=== PATIENT | male | born 1980 | race Caucasian/White ===

== ENCOUNTER → 2020-11-05 02:41 | Outpatient (CLI) | payer BC, SELFPAY ==
[2020-11-06 15:30] LABS: SARS-CoV-2 RNA PCR Negative
== END ==
PROVIDERS: PCP Family Medicine; Visit Provider Family Medicine
DX: Z20.822 Contact with and (suspected) exposure to COVID-19 (principal)
CPT/HCPCS: C9803; U0003; U0005

== ENCOUNTER 2023-03-23 18:34 | Emergency (ER) | payer BC, SELFPAY ==
--- NOTE | 2023-03-23 18:35 | ED.URI ---
HPI - URI/Sore Throat General Chief Complaint: Upper Respiratory Infection Stated Complaint: sinus infection Time Seen by Provider: 03/23/23 18:46 Source: patient, RN notes reviewed and old records reviewed Mode of arrival: ambulatory Limitations: no limitations History of Present Illness HPI Narrative: 42-year-old male presents to the [facility] with complaints of sinus congestion that started 3 days. Reports tearing or clear discharge from the right eye, denies any other symptoms. Has not taken anything for his symptoms Patient states ?they gave me antibiotics for his sinus congestion Onset (ago): day(s) (3) Related Data Allergies Allergy/AdvReac Type Severity Reaction Status Date / Time No Known Allergies Allergy Verified 03/23/23 18:53 Review of Systems Review of Systems: All systems reviewed & are unremarkable except as noted in HPI and below Constitutional: Constitutional: Reports no additional constitutional complaints Eyes: Eyes: Reports no additional eye complaints ENT: Reports as per HPI Cardiovascular: Cardiovascular: Reports no additional cardiovascular complaints, Denies chest pain and Denies dyspnea Respiratory: Respiratory: Reports no additional respiratory complaints, Denies chest congestion, Denies cough and Denies dyspnea Gastrointestinal: Gastrointestinal: Reports no additional gastrointestinal complaints, Denies abdominal pain, Denies nausea and Denies vomiting Musculoskeletal: Musculoskeletal: Reports no additional musculoskeletal complaints Integumentary/Breasts: Skin/Breast: Reports system reviewed and no additional complaints, except as docu Neurologic: Reports system reviewed and no additional complaints, except as documented Psychiatric: Psychiatric: Reports no additional psychiatric complaints Allergic/Immunologic: Allergic/Immunologic: Reports no additional allergic/immunologic complaints PMFSH Comments At the time of my signature, I reviewed and agree with the nursing past medical, surgical, social, and family history. There is no relevant family history pertinent to the patient complaint. Exam Const: General: cooperative, healthy appearing, comfortable, no acute distress, well developed, alert and well nourished Nutritional Appearance: well nourished Orientation/consciousness: patient oriented x3 Limitations: no limitations HENMT: Head: normal to inspection Ears: hearing grossly normal bilaterally, external ears normal, EAC's normal, mastoids normal and TM abnormal wth effusion serous bilateral; not bulging and not erythematous Face/Nose/Sinus: Normal external nose present, Normal nares present, Normal nasal mucous membranes and turbinates present, normal facial exam and face symmetric Face and sinus: normal facial exam, sinuses nontender and face symmetric Mouth: Yes Normal oral and palatal mucosa present, Yes lip normal and Yes moist mucous membranes Throat: posterior oropharynx normal and uvula midline Eyes: General: appearance normal, both eyes and all related structures Alignment and Position: alignment normal Periorbital: periorbital findings normal Pupils: Equal, round and reactive pupils present EOM: EOMs intact bilaterally Neck: Neck: normal visual inspection, full ROM, no lymphadenopathy and no meningeal signs Chest: Chest palpation & inspection: normal inspection of the chest Resp: Effort & Inspection: normal respiratory effort and able to speak in complete sentences Auscultation: clear to auscultation bilaterally, no crackles, no rales, no rhonchi and no wheezes Cardio: Rate: regular rate Rhythm: regular rhythm Back/Spine/Pelvis: Cervical Spine: cervical ROM normal Skin: General skin exam: normal color and no rashes or lesions noted Lesions: no lesions Rashes: no rashes Wounds: no wounds Neuro: General: patient oriented x3, gait normal, tone normal, moves all extremities and no meningeal signs Cranial nerves: Yes Equal, round and reactive pupils present C
[2023-03-23 18:49] VITALS: BP 139/91; PULSE 74; RESP 16; TEMP 36.4; O2SAT 100
== END 2023-03-23 18:58 | disposition home or self-care (01) ==
PROVIDERS: Emergency Provider Nurse Practitioner
DX: J32.9 Chronic sinusitis, unspecified (principal); H65.03 Acute serous otitis media, bilateral
CPT/HCPCS: 99213; G0463

== ENCOUNTER 2025-02-27 13:17 | Observation (INO) | payer BC, SELFPAY ==
[2025-02-27] VITALS (7 sets, daily range): BP systolic 128–151; BP diastolic 84–99; PULSE 90–109; RESP 16–18; TEMP 36.4–37.2; O2SAT 96–100
--- NOTE | ~2025-02-27 | CT_ITS ---
EXAMINATION: CT brain wo con DATE: 02/27/2025 15:51 INDICATION: Metabolic encephalopathy TECHNIQUE: Computed tomography (CT) of the head was performed without intravenous contrast. The dose-length product was 605.33 mGy-cm. Automated exposure control and iterative reconstruction technique were employed. COMPARISON: None FINDINGS: There is residual contrast likely from a CT abdomen performed the same day. No abnormal contrast enhancement. Normal brain parenchymal volume. No ventriculomegaly or midline shift. Normal munoz-white differentiation. Basilar cisterns are patent. Paranasal sinuses and mastoids are pneumatized. No depressed skull fractures. No acute infarction, hemorrhage, mass or mass effect. IMPRESSION: 1. No acute intracranial abnormality. Reviewed, dictated and finalized at location O. DENTIAL TEAM LEADER
--- NOTE | ~2025-02-27 | CT_ITS ---
EXAMINATION: CT abdomen pelvis w con DATE: 02/27/2025 14:52 INDICATION: Transaminitis. TECHNIQUE: Computed tomography (CT) of the abdomen and pelvis was performed with intravenous contrast. The dose-length product was 540.48 mGy-cm. Automated exposure control and iterative reconstruction technique were employed. COMPARISON: None. FINDINGS: Lung bases unremarkable. Heart size normal. No significant pleural or pericardial effusion. No significant vascular abnormality. No lymphadenopathy. No free air or free fluid. Nonobstructive bowel gas pattern. Fatty infiltration of the liver. Gallbladder is moderately distended. The spleen, pancreas, adrenal glands and kidneys are unremarkable. Normal appendix. IMPRESSION: 1. Fatty infiltration of the liver. Reviewed, dictated and finalized at location O. ENDER MAKER
--- NOTE | ~2025-02-27 | MR_ITS ---
EXAMINATION: MR MRCP wo/w con/w 3D wo ind DATE: 02/28/2025 11:20 INDICATION: Transaminitis TECHNIQUE: Magnetic resonance imaging (MRI) of the abdomen was performed without and with 20 mL Multihance intravenous contrast. Sequences included coronal T2- weighted SS-FSE, coronal T2-weighted FS SS-FSE, coronal T2-weighted FS FIESTA, axial T2-weighted FS FIESTA, axial T2-weighted FIESTA, sagittal T2-weighted SS- FSE, axial T1-weighted dual-echo FSPGR, axial T2-weighted SS-FSE, axial T1- weighted LAVA, axial T2-weighted STIR FSE. Thick-slab T2-weighted FRFSE-XL images were obtained for magnetic resonance cholangiopancreatography (MRCP). Rotating maximum intensity projection 3-D reconstructions of the volumetric data were created by the technologist. Postcontrast sequences included a time course of axial T1-weighted LAVA. COMPARISON: CT dated 02/27/2025 FINDINGS: ABDOMEN MRI: Heart size is normal. No pericardial or pleural effusion. Marked diffuse hepatic steatosis with nearly 2/3 signal loss on opposed phase imaging. Gallbladder, spleen, pancreas, bilateral adrenal glands and kidneys are normal. Visualized portions of bowels are unremarkable. No pathologically enlarged abdominal or upper pelvic lymphadenopathy. Mild lumbar and lower thoracic spondylosis. ABDOMEN MRCP: The common bile duct measures to have 3 mm maximal diameter which is normal. No intrahepatic biliary ductal dilation. The main pancreatic duct is also normal measuring up to 2.5 cm in maximal diameter at the proximal body of the pancreas. IMPRESSION: 1. Prominent diffuse hepatic steatosis. Otherwise unremarkable MRI/MRCP with normal intra and extrahepatic bile ducts and without cholelithiasis/choledocholithiasis. Reviewed, dictated and finalized at location A. ENT DEVELOPER IMPRESSION: 1. Prominent diffuse hepatic steatosis. Otherwise unremarkable MRI/MRCP with no rmal intra and extrahepatic bile ducts and without cholelithiasis/choledocholit hiasis.
--- NOTE | ~2025-02-27 | US_ITS ---
US abdomen limited INDICATION: Transaminitis. PROCEDURE: Realtime right upper abdominal ultrasound. COMPARISON: Ultrasound dated 10/24/2010 FINDINGS: The pancreas is normal without focal mass or pancreatic ductal dilation. Liver echotexture is diffusely echogenic, consistent with fatty infiltration. No focal hepatic mass. There is normal directional flow in the portal vein. The gallbladder is normal without stones, gallbladder wall thickening or pericholecystic fluid. Common bile duct measures 5 mm. IMPRESSION: 1: Fatty infiltration of the liver. Reviewed, dictated and finalized at location O. ENFORCEMENT OFFICER
--- OUTSIDE RECORDS SUMMARY | 2025-02-27 13:20 | XMS_ITS | Patient Health Record ---
Author Organization [facility] Address [address] [facility] [address] [place] [address] Care Team Providers Care Fur Glosser Name Role Phone Amor Jimenez Unavailable [phone] Reason For Referral No Information Social History Social History Additional Details Category Social Info Options Details Migrated Social History Migrated Social History Alcohol Intake: Occasional 03/16/2020,Tobacco Years: Current every day smoker 03/16/2020 Plan Of Treatment No Information Insurance Providers Payer Name Payer Address Payer Phone Subscriber Number Group Number Insured Name Patient Relationship to Insured Coverage Start Date Coverage End Date [facility] [address] [place] [address] [id number] NERI AGUILAR Self - patient is the insured
--- OUTSIDE RECORDS SUMMARY | 2025-02-27 13:20 | XMS_ITS | Clinical Summary ---
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 Gender Identity Not on file Sexual Orientation Not on file Plan of Treatment Health Maintenance Due Date Last Done Comments Hepatitis C Virus (HCV) Screening 1981 TdaP Immunization 1981 Hepatitis B Immunization (1 of 3 - 19+ 3-dose series) 2000 Human Papillomavirus (HPV) Immunization (1 - 3-dose SCDM series) 2008 Influenza Immunization (#1) 2024 SARS-COV-2 Immunization ( season) 2024 Respiratory Syncytial Virus (RSV) Immunization (Adult) (1 - 1-dose 75+ series) 2056 Meningococcal Immunization (ACWY) Aged Out No longer eligible based on patient's age to complete this topic Pneumococcal Immunization Combined Aged Out No longer eligible based on patient's age to complete this topic Rotavirus Immunization Aged Out No lo nger eligible based on patient's age to complete this topic
--- OUTSIDE RECORDS SUMMARY | 2025-02-27 13:56 | XMS_ITS | Clinical Summary ---
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
--- NOTE | 2025-02-27 14:07 | ECG_ITS ---
Test Date: 2025-02-27 14:26:33 Measurements Intervals [place] Rate: 98 P: 57 GA: 104 QRS: -4 QRSD: 96 T: 47 QT: 338 QTc: 433 Interpretive Statements SINUS RHYTHM WITH SHORT GA INTERVAL MINIMAL Q WAVES- HIGH LATERAL LEADS BASELINE ARTIFACT- V4 BORDERLINE ECG No previous ECG available for comparison Electronically Signed On 02-27-2025 14:38:27 SOFTWARE DEVELOPMENT INTERN by Rodo Huynh D.O.
--- NOTE | 2025-02-27 14:21 | ED.GENADULT ---
HPI - General Adult General Chief complaint: Unspecified Stated complaint: hole in kidney Time Seen by Provider: 02/27/25 13:50 History of Present Illness HPI narrative: 44-year-old male presents to the emergency department for evaluation for suspected ?hole in his kidney. Patient suspects he has a hole in his kidney because if he pushes on his left lower quadrant he is able to urinate without issues. Patient does have a history of alcohol consumption but states he last drank approximately 2 weeks ago. Patient is tremulous at time of evaluation. Patient states this is not uncommon for him. Patient does have some scleral icterus which he states is also not uncommon for him. Patient states he has no prior history of alcohol withdrawal. Patient does reports that he has had difficulty sleeping and decreased p.o. intake. Related Data Allergies Allergy/AdvReac Type Severity Reaction Status Date / Time No Known Allergies Allergy Verified 02/27/25 18:29 Review of Systems Review of Systems: All systems reviewed & are unremarkable except as noted in HPI and below Exam Narrative: APPEARANCE: Ill-appearing HEAD: normocephalic, atraumatic. EYES: Scleral icterus NOSE: Normal no drainage EARS:TMS clear with good light reflex. THROAT: Pharynx clear, no exudate. NECK: Supple. No adenopathy, no masses. RESPIRATORY: Airway patent, respirations nonlabored. Clear to auscultation bilaterally, no rales, rhonchi, wheezing. CARDIOVASCULAR: Regular rate and rhythm without murmurs rubs or gallops. ABDOMINAL: Mild tenderness to left lower quadrant MUSCULOSKELETAL: Moves all extremities. Strength/ROM intact, No edema, No calf tenderness. NEURO: Alert. Cranial nerves II through XII intact. Good gait. Good coordination SKIN: Warm, dry. Normal Color Course Vital Signs Vital signs: Vital Signs Temperature 98 F 02/27/25 13:21 Pulse Rate 109 H 02/27/25 13:21 Respiratory Rate 16 02/27/25 13:21 Blood Pressure 151/97 H 02/27/25 13:21 Pulse Oximetry 99 02/27/25 13:21 Oxygen Delivery Room Air 02/27/25 13:21 Temperature 97.6 F 02/27/25 17:25 Pulse Rate 94 02/27/25 17:09 Respiratory Rate 18 02/27/25 17:09 Blood Pressure 131/99 H 02/27/25 17:09 Pulse Oximetry 96 02/27/25 17:09 Oxygen Delivery Room Air 02/27/25 13:21 [facility] Narrative Medical decision making narrative: 44-year-old male presents emergency department for evaluation for potential hole in his kidney. Patient feels that he has a hole in his kidney that if he pushes on his left lower quadrant at plug the hole. Patient is currently afebrile with a leukocytosis and a stable hemoglobin of 14.9. INR 1.1. Patient does have a significant elevated bilirubin of 8.4 AST of 517 ALT of 262 alk-phos of 222. And a lipase of 7324. Patient's ammonia level is not elevated. Patient's alcohol as negative. CT scan does show fatty infiltration of the liver and ultrasound shows this as well. I am concerned patient does have some metabolic encephalopathy. B12 and folate levels are pending. Patient was treated with IV thiamine. GI was consulted. MRCP was ordered. Patient was treated with IV fluids and patient was made NPO related to the elevated lipase and concern for pancreatitis. Patient was after the results of the workup and reason for admission. All questions concerns were addressed patient was comfortable with plan for admission. Differential Diagnosis Differential Diagnosis: Ureteral calculi, inguinal hernia, metabolic encephalopathy, hyperammonemia, biliary colic, pancreatic tumor, pancreatic obstruction, biliary obstruction Lab Data [facility] Lab Attestation statement: I personally reviewed the patient's lab results. 02/27/25 14:20 02/27/25 14:20 Labs: Lab Results 02/27/25 02/27/25 02/27/25 Range/Units 14:19 14:20 14:21 WBC 7.2 (4.5-10.0) K/mm3 RBC 4.35 L (4.6-6.20) M/mm3 Hgb 14.9 (14.0-18.0) g/dL Hct 41.0 L (42.0-52.0) % MCV 94.3 (80-100) fl MCH 34.3 H (26-34) pg MCHC 36.3 H (32-36) g/dl RDW 14.7 H (11.5-14.5) % Plt Count 216 (150-375) k/mm3 MPV 10.2 (7.4-10.4) fl Immature Gran % (Auto) 1.8 H (0-0.5) % Neut % (Auto) 71.9 (45.5-73.1) % Lymph % (Auto) 9.5 L (18.3-44.2) % [place] % (Auto) 14.8 H (2.6-8.5) % Eos % (Auto) 1.0 (0-4.4) % Baso % (Auto) 1.0 (0.2-1.2) % Lymph # (Auto) 0.69 L (0.9-3.2) K/mm3 [place] # (Auto) 1.1 H (0.1-0.6) K/mm3 Eos # (Auto) 0.1 (0-0.3) K/mm3 Baso # (Auto) 0.1 (0.0-0.1) K/mm3 Abs Immat Gran (auto) 0.13 H (0.00-0.031) K/mm3 Absolute Neuts (auto) 5.2 (1.3-6.7) K/mm3 Absolute Nucleated RBC 0.000 (0.0-0.012) K/mm3 Nucleated RBC % 0.0 (0.0-0.2) % PT 14.4 (11.1-14.7) Seconds INR 1.1 APTT 30.1 (22.3-36.8) Seconds Sodium 129 L (137-145) mmol/L Potassium 3.6 (3.4-5.0) mmol/L Chloride 88 L (98-107) mmol/L Carbon Dioxide 26 (22-30) mmol/L Anion Gap 15 H (4-12) mmol/L BUN 10 (9-20) mg/dL Creatinine 0.81 (0.7-1.3) mg/dL Estim Creat Clear Calc 120 ml/min Estimated GFR > 60 (59 - ) Glucose 109 (65-110) mg/dL Lactic Acid 1.2 (0.7-2.0) mmol/L Calcium 10.1 (8.4-10.2) mg/dL Total Bilirubin 8.4 H (0.2-1.3) mg/dL AST 517 H (17-59) U/L ALT 262 H (6-50) U/L Alkaline Phosphatase 222 H (38-126) U/L Ammonia (9-30) umol/L Total Protein 9.3 H (6.3-8.2) g/dL Albumin 4.8 (3.5-5.1) g/dL Lipase 7324 H (23-300) U/L Vitamin B12 937.0 H (239-931) pg/mL Folate 6.2 (2.76->20) ng/mL Urine Color Dark yellow (Yellow) Urine Appearance Clear (Clear) Urine pH 8.0 (5.0-9.0) Ur Specific [place] 1.012 (1.001-1.035) Urine Protein 1+ H (Negative) mg/dL Urine Glucose (UA) Negative (Negative) mg/dL Urine Ketones Trace H (Negative) mg/dL Ur Blood (Man) Negative (Negative) Urine Nitrate Negative (Negative) Urine Bilirubin 3+ H (Negative) Urine Urobilinogen 2.0 H (<2.0) mg/dL Leukocyte Esterase Rfl Trace H (Negative) MERI/UL Urine RBC 0-2 (0-2) /hpf Urine WBC 0-5 (0-3) /hpf Ur Squamous Epith Cells None seen (Few) /hpf Urine Bacteria None seen /hpf Urine Casts 3-5 Ethyl Alcohol < 10 (<10) mg/dL Hepatitis A IgM Ab Negative (Negative) Hep Bs Antigen Negative (Negative) Hep B Core IgM Ab Negative (Negative) Hepatitis C Ab Screen Negative (Negative) 02/27/25 Range/Units 15:06 WBC (4.5-10.0) K/mm3 RBC (4.6-6.20) M/mm3 Hgb (14.0-18.0) g/dL Hct (42.0-52.0) % MCV (80-100) fl MCH (26-34) pg MCHC (32-36) g/dl RDW (11.5-14.5) % Plt Count (150-375) k/mm3 MPV (7.4-10.4) fl Immature Gran % (Auto) (0-0.5) % Neut % (Auto) (45.5-73.1) % Lymph % (Auto) (18.3-44.2) % [place] % (Auto) (2.6-8.5) % Eos % (Auto) (0-4.4) % Baso % (Auto) (0.2-1.2) % Lymph # (Auto) (0.9-3.2) K/mm3 [place] # (Auto) (0.1-0.6) K/mm3 Eos # (Auto) (0-0.3) K/mm3 Baso # (Auto) (0.0-0.1) K/mm3 Abs Immat Gran (auto) (0.00-0.031) K/mm3 Absolute Neuts (auto) (1.3-6.7) K/mm3 Absolute Nucleated RBC (0.0-0.012) K/mm3 Nucleated RBC % (0.0-0.2) % PT (11.1-14.7) Seconds INR APTT (22.3-36.8) Seconds Sodium (137-145) mmol/L Potassium (3.4-5.0) mmol/L Chloride (98-107) mmol/L Carbon Dioxide (22-30) mmol/L Anion Gap (4-12) mmol/L BUN (9-20) mg/dL Creatinine (0.7-1.3) mg/dL Estim Creat Clear Calc ml/min Estimated GFR (59 - ) Glucose (65-110) mg/dL Lactic Acid (0.7-2.0) mmol/L Calcium (8.4-10.2) mg/dL Total Bilirubin (0.2-1.3) mg/dL AST (17-59) U/L ALT (6-50) U/L Alkaline Phosphatase (38-126) U/L Ammonia 23 (9-30) umol/L Total Protein (6.3-8.2) g/dL Albumin (3.5-5.1) g/dL Lipase (23-300) U/L Vitamin B12 (239-931) pg/mL Folate (2.76->20) ng/mL Urine Color (Yellow) Urine Appearance (Clear) Urine pH (5.0-9.0) Ur Specific [place] (1.001-1.035) Urine Protein (Negative) mg/dL Urine Glucose (UA) (Negative) mg/dL Urine Ketones (Negative) mg/dL Ur Blood (Man) (Negative) Urine Nitrate (Negative) Urine Bilirubin (Negative) Urine Urobilinogen (<2.0) mg/dL Leukocyte Esterase Rfl (Negative) MERI/UL Urine RBC (0-2) /hpf Urine WBC (0-3) /hpf Ur Squamous Epith Cells (Few) /hpf Urine Bacteria /hpf Urine Casts Ethyl Alcohol (<10) mg/dL Hepatitis A IgM Ab (Negative) Hep Bs Antigen (Negative) Hep B Core IgM Ab (Negative) Hepatitis C Ab Screen (Negative) Imaging Data Radiologist's impression: ITS Impressions Abdomen/Pelvis CT 02/27/25 15:08 IMPRESSION: 1. Fatty infiltration of the liver. Abdomen Ultrasound 02/27/25 15:11 IMPRESSION: 1: Fatty infiltration of the liver. Head CT 02/27/25 15:52 IMPRESSION: 1. No acute intracranial abnormality. Discharge Plan Discharge Clinical Impression: Pancreatitis, Transaminitis, Metabolic encephalopathy Patient Disposition: Still a Patient Condition: Serious
[2025-02-27] MEDS: THIAMINE HCL 200 MG/2 ML VIAL 100 MG IV PUSH (14:23)
[2025-02-27 14:29] LABS: Hematocrit 41.0 % (42.0-52.0); Hemoglobin 14.9 g/dL (14.0-18.0); Immature Granulocyte Percent A 1.8 % (0-0.5); Lymphocytes Absolute Auto 0.69 K/mm3 (0.9-3.2); Mean Corpuscular HGB Conc 36.3 g/dl (32-36); Mean Corpuscular Hemoglobin 34.3 pg (26-34); Mean Corpuscular Volume 94.3 fl (80-100); Nucleated Red Blood Cells Absolute Auto 0.000 K/mm3 (0.0-0.012); Nucleated Red Blood Cells Perc 0.0 % (0.0-0.2); Platelet Count Result 216 k/mm3 (150-375); Red Blood Count 4.35 M/mm3 (4.6-6.20); White Blood Count 7.2 K/mm3 (4.5-10.0)
[2025-02-27 14:37] LABS: Add Urine Microscopic? YES; Appearance Urine Clear (Clear); Glucose Urine UA Negative (Negative); Leukocyte Esterase Ur Trace LEU/UL (Negative); Nitrate Urine Negative (Negative); Specific Grav Ur 1.012 (1.001-1.035)
[2025-02-27 14:38] LABS: Alanine Aminotransferase 262 U/L (6-50); Albumin Level 4.8 g/dL (3.5-5.1); Alkaline Phosphatase 222 U/L (38-126); Anion Gap 15 mmol/L (4-12); Aspartate Amino Transferase 517 U/L (17-59); Bilirubin,Total 8.4 mg/dL (0.2-1.3); Blood Urea Nitrogen 10 mg/dL (9-20); Calcium 10.1 mg/dL (8.4-10.2); Carbon Dioxide 26 mmol/L (22-30); Chloride 88 mmol/L (98-107); Estimated CRCL calculation 120 ml/min; Estimated Glomerular Filt Rate > 60; Glucose 109 mg/dL (65-110); Potassium 3.6 mmol/L (3.4-5.0); Sodium 129 mmol/L (137-145); Total Protein 9.3 g/dL (6.3-8.2)
[2025-02-27 14:48] LABS: INR 1.1; Prothrombin Time 14.4 Seconds (11.1-14.7)
[2025-02-27 14:49] LABS: Partial Thromboplastin Time 30.1 Seconds (22.3-36.8)
[2025-02-27 14:57] LABS: Lipase 7324 U/L (23-300)
[2025-02-27 15:24] LABS: Ammonia 23 umol/L (9-30)
[2025-02-27] MEDS: LACTATED RINGERS 1,000 ML 125 ML IV CONT (17:02)
[2025-02-27 17:03] LABS: Hepatitis B Surface Antigen Negative (Negative)
[2025-02-27 17:09] LABS: HAV RESULT Negative (Negative); Hepatitis B Core IgM Result Negative (Negative)
--- NOTE | 2025-02-27 17:26 | WPCEDHO ---
ED Hand Off Checklist All vitals saved:Y IV Site documented:Y All med administrations documented:Y Triage Note Triage Note Patient to ED reporting he has a 02/27/25 14:16 hole in his kidney. Patient reports feeling vibrations in his L kidney and that he needs the hole plugged. Patient denies any puncture wounds or external trauma to affected area. Patient appears jaundiced, but states he does not feel as if he is jaundiced. Patient last alcoholic drink was approx 2 weeks ago. Patient tremulous in triage. Patient alert to self, place, and situation. 1410-No changes from above Allergies No Known Allergies Allergy (Verified 03/23/23 18:53) Active Medications including assessments/comments Lactated Ringer's (Lr - Lactated Ringers Iv) 1,000 mls @ 125 mls/hr IV CONT .Q8H LAVONNE Last Admin: 02/27/25 17:02 Dose: 125 mls/hr Documented By: LOLIS Infusion/Titration Document 02/27/25 17:02 LOLIS (Rec: 02/27/25 17:02 TLB [id number]) Intake IV Site Peripheral Access Right Antecubital Container Volume 1,000 Waste Amount 0 Dosing Infusion Rate 125 Cumulative Dose Not Applicable Increase/Decrease Started Elapsed Time Elapsed Time ( 0m minutes) Administered/Completed Medications Discontinued Medications Thiamine HCl (Thiamine Hcl 200 Mg/2 Ml Vial) 100 mg IV PUSH ONCE ONE Stop: 02/27/25 14:08 Last Admin: 02/27/25 14:23 Dose: 100 mg Documented By: LOLIS Interventions/Assessments General Assessment Start: 02/27/25 13:21 Freq: Status: Active Protocol: Document 02/27/25 14:30 TLB (Rec: 02/27/25 17:11 TLB [id number]) GA Integumentary Assessment Integumentary Yes Assessment WNL Generalized Integumentary Jaundice Symptoms Temperature Warm Skin Color Normal for Patient Moisture Dry Skin Turgor Normal IV / Saline Lock, Insert Start: 02/27/25 13:21 Freq: Status: Active Protocol: Document 02/27/25 14:16 TLB (Rec: 02/27/25 14:16 TLB [id number]) IV Assessment Peripheral Access Right Antecubital IV Catheter Access Initiated IV Insertion Date 02/27/25 IV Insertion Time 14:16 Catheter Gauge 20 IV Insertion 1 Attempts IV Site Assessment WNL IV Care and WNL,Access Locked Maintenance Last Vital Signs Temperature 97.6 F 02/27/25 17:25 Pulse Rate 94 02/27/25 17:09 Respiratory Rate 18 02/27/25 17:09 Pulse Oximetry 96 02/27/25 17:09 Blood Pressure 131/99 H 02/27/25 17:09 Blood Pressure Mean 109 02/27/25 17:09 Blood Pressure Position Sitting 02/27/25 13:21 Oxygen Delivery Room Air 02/27/25 13:21 Weight 97.7 kg 02/27/25 14:16 Last Result - Abnormals Only RBC 4.35 M/mm3 (4.6-6.20) L 02/27/25 14:20 Hct 41.0 % (42.0-52.0) L 02/27/25 14:20 MCH 34.3 pg (26-34) H 02/27/25 14:20 MCHC 36.3 g/dl (32-36) H 02/27/25 14:20 RDW 14.7 % (11.5-14.5) H 02/27/25 14:20 Immature Gran % (Auto) 1.8 % (0-0.5) H 02/27/25 14:20 Lymph % (Auto) 9.5 % (18.3-44.2) L 02/27/25 14:20 [place] % (Auto) 14.8 % (2.6-8.5) H 02/27/25 14:20 Lymph # (Auto) 0.69 K/mm3 (0.9-3.2) L 02/27/25 14:20 [place] # (Auto) 1.1 K/mm3 (0.1-0.6) H 02/27/25 14:20 Abs Immat Gran (auto) 0.13 K/mm3 (0.00-0.031) H 02/27/25 14:20 Sodium 129 mmol/L (137-145) L 02/27/25 14:20 Chloride 88 mmol/L (98-107) L 02/27/25 14:20 Anion Gap 15 mmol/L (4-12) H 02/27/25 14:20 Total Bilirubin 8.4 mg/dL (0.2-1.3) H 02/27/25 14:20 AST 517 U/L (17-59) H 02/27/25 14:20 ALT 262 U/L (6-50) H 02/27/25 14:20 Alkaline Phosphatase 222 U/L (38-126) H 02/27/25 14:20 Total Protein 9.3 g/dL (6.3-8.2) H 02/27/25 14:20 Lipase 7324 U/L (23-300) H 02/27/25 14:20 Urine Protein 1+ mg/dL (Negative) H 02/27/25 14:21 Urine Ketones Trace mg/dL (Negative) H 02/27/25 14:21 Urine Bilirubin 3+ (Negative) H 02/27/25 14:21 Urine Urobilinogen 2.0 mg/dL (<2.0) H 02/27/25 14:21 Leukocyte Esterase Rfl Trace MERI/UL (Negative) H 02/27/25 14:21 Most Recent Suicide Severity Rating Suicide Severity Rating NO RISK INDICATED 02/27/25 14:16
[2025-02-27 17:39] LABS: Vitamin B12 937.0 pg/mL (239-931)
--- NOTE | 2025-02-27 18:23 | ADMGEN ---
This patient, Joe Naik, was admitted to Medical Room 340-01. Patient/family oriented to hospital policies and general routines including ID bracelet, bed and alarms, visiting hours, pain management, procedures, bathroom and other care routines, personal items, smoking policy, room service/diet, and visiting hours. Information on how to activate the Rapid Response Team has been discussed. Patient/Family are encouraged to report perceived risks to care and to ask questions if they do not understand what they are told or what they should do.
[2025-02-27] MEDS: LACTULOSE 20 GM/30 ML UDC PO (21:31)
[2025-02-28] MEDS: LACTATED RINGERS 1,000 ML 125 ML IV CONT ×2 (02:45→08:28)
[2025-02-28 05:11] VITALS: BP 130/82; PULSE 82; RESP 18; TEMP 37.1; O2SAT 97
--- NOTE | 2025-02-28 05:37 | P.HP_ITS ---
H&P: HPI History of Present Illness Date/Time: 02/28/25 05:37 Chief Complaint: ?I have this hole in my kidney that fluid is running out in into my groin? Narrative: 44-year-old male with a past medical history of chronic alcohol dependence who presented to the ER with complaints of having a hole in his kidney. He reports that he quit drinking alcohol 14 or 15 days ago. He does not give a specific reason why he quit drinking alcohol. He just stated it was because he started to realize ?how serious this problem was?. It sounds as if he may have been having some abdominal pain that induced him to quit drinking. But it is difficult to determine as the patient is not a good historian. He reported that 3-4 days after he quit drinking he began feeling the sensation of this cold hold in his kidney with the water flowing down into his groin and scrotum on the left side more than the right. He stated that if he pushed on the area of the water flow it made it easier for him to urinate. He was reporting vibrations in his left kidney. He reports that his abdomen feels more ball loaded in that he has had more flatulence. He has been having some shaking in his hands. Although he states that he has had intermittent shaking in his hands over the course of the last year with no rhyme or reason. He reports that he has been drinking heavily for a year ever since he went through a divorce in a custody zarate. He reports that he drinks 3-4 shots 4 times a week. His last drink of alcohol was 14 days ago. He reports that that he is actually seeing a man standing in the corner of the room at the time of my evaluation but he will not give me any further details. He then told me that he actually saw him and also standing on the roof outside of his room. He told me he took a picture of the man standing on the roof because the man had been waving at him. He knew that we would think he was crazy so that is why he took the picture. The patient in pulses phone out to show me a picture of the security camera that is positioned on the roof of the hospital. CT of the head was obtained which demonstrated no acute process. On arrival to the ER it was noted the patient was markedly jaundice. He was also tremulous. Labs were obtained which demonstrated marked elevation in transaminases and bilirubin consistent with acute hepatitis. Patient also had an elevated lipase. He was not having any abdominal pain and denies any recent nausea vomiting or changes in bowel habits but he is not the most reliable historian. It sounds like the patient was having some abdominal pain about 2 weeks ago and could be in the phase of recovering from a pancreatitis but no evidence of pancreatitis on imaging. Imaging demonstrated fatty infiltration of the liver on CT and on ultrasound. Ultrasound did not demonstrate drain any inflammation of the gallbladder wall thickening or stones. He denies any fevers or chills. At the time of my evaluation the patient was noted to be markedly diuretic and he told me that that was because I was making him anxious. He denies any loss of appetite and is extremely upset that we have not let him eat since he came to the hospital. He reports that he did not eat before coming to the hospital because he was convinced he would need surgery for the ?hole in his kidney. ? He reports that he has been taking his multivitamin daily. Review of Systems 2 Review of Systems: 12 systems were reviewed with pertinent positives and negatives per HPI. Except as documented in the HPI, all other systems were reviewed and are negative. [facility] Past Medical History Medical History (Updated 02/28/25 @ 10:09 by Kathrine Pinon DO) Obesity Chronic alcohol abuse Surgical History Surgical History (Updated 02/28/25 @ 10:09 by Kathrine Pinon DO) No significant past surgical history Family History Family History Mother Lung cancer Grandparent Lung cancer Colon cancer Alzheimer dementia Social History Social History (Updated 02/28/25 @ 10:43 by Kathrine Pinon DO) Social History: The patient has custody of his 2 daughters ages 8 and 17 years old. 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 He has drink heavily for a year as discussed above. He has vape for 15-20 years. He denies illicit substance use. Code status: Full code Surrogate decision maker: Tisha (oldest daughter) phone number [phone] Years smoked: 20 Smoking status: Current every day smoker Tobacco type: e-cigarettes/vaping Alcohol intake: current Drinks per week: 12 Substance use: never Lack of Transportation: No Lack of Food: Never True Current Housing: I Have Housing Concerned About Future Housing: No Difficulty Paying Gas/Electric Bills: No Difficulty Paying for Meds: No Currently Unemployed: No Education: High School Diploma/GED Difficulty w/ Childcare or Family Care: No Spiritual care concerns: No Meds Home Medications and Allergies Home Medications ?Medication ?Instructions ?Recorded ?Confirmed ?Type No Home Medications 02/28/25 02/28/25 H istory Allergies Allergy/AdvReac Type Severity Reaction Status Date / Time No Known Allergies Allergy Verified 02/27/25 18:29 Vital Signs Vital Signs - 24 hr 02/27/25 13:21 02/27/25 15:00 02/27/25 16:00 Temperature 98 F Pulse Rate 109 H 99 90 Respiratory Rate 16 16 18 Blood Pressure 151/97 H 139/95 H 128/99 H Pulse Oximetry 99 96 96 Oxygen Delivery Room Air 02/27/25 17:09 02/27/25 17:25 02/27/25 18:34 Temperature 97.6 F 97.6 F Pulse Rate 94 94 Respiratory Rate 18 18 Blood Pressure 131/99 H 138/99 H Pulse Oximetry 96 100 Oxygen Delivery 02/27/25 20:00 02/27/25 20:57 02/28/25 05:11 Temperature 99 F 98.7 F Pulse Rate 101 H 82 Respiratory Rate 18 18 Blood Pressure 136/84 130/82 Pulse Oximetry 98 97 Oxygen Delivery Room Air Exam 2 Narrative: Weight 97.7 kg BMI 30.9 Const: Other: Patient is well-developed well-nourished, sitting up in bed no acute distress HENMT: Other: Marked scleral icterus, no conjunctival pallor, pupils are equal and reactive, right eyes intermittently going esotropia mucous membranes are tacky Neck: Other: No JVD, no lymphadenopathy Resp: Other: Clear to auscultation bilaterally, no increased work of breathing Cardio: Other: Regular rate, regular rhythm, 2+ bilateral radial pedal pulses GI: Other: Soft, nontender, mildly distended, normoactive bowel sounds Skin: Other: Markedly jaundice, no pallor Neuro: Other: Alert oriented to person, place, time and name of the current president, his right eye is demonstrating intermittent esotropia, his movements are somewhat jerky and uncoordinated he has difficulty opening his phone and finding is daughter's phone number Extrem: Other: 5/5 geospatial engineer strength and 5/5 plantar and do rsiflexion strength as well as 5 5 strength on straight leg raise Psych: Speech and movement: Restless speech present Attitude: cooperative and Avoids eye contact (attititude/behavior) Thought process: Loose association thought process present Thought content: Yes Hallucination(s) present Results Labs Labs: Laboratory Tests 02/27/25 14:20 02/27/25 14:20 02/27/25 02/27/25 02/27/25 14:19 14:20 14:21 WBC 7.2 RBC 4.35 L Hgb 14.9 Hct 41.0 L MCV 94.3 MCH 34.3 H MCHC 36.3 H RDW 14.7 H Plt Count 216 MPV 10.2 Immature Gran % (Auto) 1.8 H Neut % (Auto) 71.9 Lymph % (Auto) 9.5 L [place] % (Auto) 14.8 H Eos % (Auto) 1.0 Baso % (Auto) 1.0 Lymph # (Auto) 0.69 L [place] # (Auto) 1.1 H Eos # (Auto) 0.1 Baso # (Auto) 0.1 Abs Immat Gran (auto) 0.13 H Absolute Neuts (auto) 5.2 Absolute Nucleated RBC 0.000 Nucleated RBC % 0.0 PT 14.4 INR 1.1 APTT 30.1 Sodium 129 L Potassium 3.6 Chloride 88 L Carbon Dioxide 26 Anion Gap 15 H BUN 10 Creatinine 0.81 Estim Creat Clear Calc 120 Estimated GFR > 60 Glucose 109 Lactic Acid 1.2 Calcium 10.1 Total Bilirubin 8.4 H AST 517 H ALT 262 H Alkaline Phosphatase 222 H Ammonia Total Protein 9.3 H Albumin 4.8 Lipase 7324 H Vitamin B12 937.0 H Folate 6.2 Urine Color Dark yellow Urine Appearance Clear Urine pH 8.0 Ur Specific Ruby 1.012 Urine Protein 1+ H Urine Glucose (UA) Negative Urine Ketones Trace H Ur Blood (Man) Negative Urine Nitrate Negative Urine Bilirubin 3+ H Urine Urobilinogen 2.0 H Leukocyte Esterase Rfl Trace H Urine RBC 0-2 Urine WBC 0-5 Ur Squamous Epith Cells None seen Urine Bacteria None seen Urine Casts 3-5 Ethyl Alcohol < 10 Hepatitis A IgM Ab Negative Hep Bs Antigen Negative Hep B Core IgM Ab Negative Hepatitis C Ab Screen Negative 02/27/25 15:06 WBC RBC Hgb Hct MCV MCH MCHC RDW Plt Count MPV Immature Gran % (Auto) Neut % (Auto) Lymph % (Auto) [place] % (Auto) Eos % (Auto) Baso % (Auto) Lymph # (Auto) [place] # (Auto) Eos # (Auto) Baso # (Auto) Abs Immat Gran (auto) Absolute Neuts (auto) Absolute Nucleated RBC Nucleated RBC % PT INR APTT Sodium Potassium Chloride Carbon Dioxide Anion Gap BUN Creatinine Estim Creat Clear Calc Estimated GFR Glucose Lactic Acid Calcium Total Bilirubin AST ALT Alkaline Phosphatase Ammonia 23 Total Protein Albumin Lipase Vitamin B12 Folate Urine Color Urine Appearance Urine pH Ur Specific Ruby Urine Protein Urine Glucose (UA) Urine Ketones Ur Blood (Man) Urine Nitrate Urine Bilirubin Urine Urobilinogen Leukocyte Esterase Rfl Urine RBC Urine WBC Ur Squamous Epith Cells Urine Bacteria Urine Casts Ethyl Alcohol Hepatitis A IgM Ab Hep Bs Antigen Hep B Core IgM Ab Hepatitis C Ab Screen Impressions Abdomen/Pelvis CT 02/27/25 15:08 IMPRESSION: 1. Fatty infiltration of the liver. Abdomen Ultrasound 02/27/25 15:11 IMPRESSION: 1: Fatty infiltration of the liver. Head CT 02/27/25 15:52 IMPRESSION: 1. No acute intracranial abnormality. EKG:Test Date: 2025-02-27 14:26:33 Measurements Intervals [place] Rate: 98 P: 57 MD: 104 QRS: -4 QRSD: 96 T: 47 QT: 338 QTc: 433 Interpretive Statements SINUS RHYTHM WITH SHORT MD INTERVAL MINIMAL Q WAVES- HIGH LATERAL LEADS BASELINE ARTIFACT- V4 BORDERLINE ECG No previous ECG available for comparison Quality VTE Prophylaxis VTE prophylaxis: pharmacologic ordered (Lovenox 40 mg subQ daily.) Assessment and Plan Assessment and plan (1) Pancreatitis: Qualifiers: Chronicity: chronic Pancreatitis type: alcohol induced Qualified Code(s): K86.0 - Alcohol-induced chronic pancreatitis Code(s): K85.90 - Acute pancreatitis without necrosis or infection, unspecified Status: Acute (2) Transaminitis: Code(s): R74.01 - Elevation of levels of liver transaminase levels Status: Acute (3) Hallucinations: Code(s): R44.3 - Hallucinations, unspecified Status: Acute (4) Metabolic encephalopathy: Code(s): G93.41 - Metabolic encephalopathy Status: Acute (5) Chronic alcohol abuse: Code(s): F10.10 - Alcohol abuse, uncomplicated Status: Acute Plan Patient has transaminitis and elevated lipase with marked hyperbilirubinemia. He has evidence of acute hepatitis given clinical picture most likely due to alcoholism. Can not rule out underlying obstructing mass or gallstone. Patient is not having any acute abdominal pain to suggest pancreatitis at this time but sounds like he may have had pain a week or 2 ago that may have precipitated his acute cessation of alcohol use. The patient is currently NPO and on IV fluid hydration. Gastroenterology has been consulted. And will await further recommendations. The patient did receive thiamin in the ER. Patient is quite adamant that it is been 2 weeks since he quit drinking alcohol. Theoretically should be through the phase of alcohol withdrawal. However patient is tremulous in his some diaphoresis he is encephalopathic and confused despite being able to answer basic orientation questions. He is having visual hallucinations and I believe his report of a hole in his kidney and sensation of coldness in his abdomen may be part of his hallucinations. He is having some mild ataxia of his hands and mild internuclear ophthalmoplegia of the right eye. Will increase the patient's thiamin to high-dose thiamine 500 mg IV q.8 hours for 5 days. The patient is having hallucination and diaphoresis. Patient may not be quite as true full as he claims regarding alcohol cessation timeframe. Subsequently I will add CIWA scores with benzodiazepines as needed based on symptoms severity. The patient's hallucinations could also be due to hepatic encephalopathy. Will place the patient on lactulose 20 g p.o. t.i.d. until the patient has 2-3 soft stools a day. Despite patient's alcohol use he does have normal platelet count and normal hemoglobin. She would be safe for the patient to receive pharmacologic DVT prophylaxis with Lovenox. MEDICAL DECISION MAKING NARRATIVE -Spoke with the ED provider in detail regarding patient's evaluation, workup and management -Patient seen and examined at bedside -Collaborated with patient's nurse at the bedside in detail and addressed all concerns -Labs, electrolytes, radiology, investigations and test results personally reviewed and interpreted unless otherwise specified -ED/Consult/Nursing/Ancilliary notes on the chart reviewed and appreciated -applicable past medical records and labs were reviewed and unless stated otherwise. -Spoke with patient at bedside and diagnosis, plan of care was discussed and questions answered. Time Spent with Patient Time with patient: 75 minutes or greater Hospitalist [facility] Advance Care Plan I have confirmed that the patient's Advanced Care Plan is present, code status is documented, or surrogate decision maker is listed in patient medical record.: Yes Medication Reconciliation I have utilized all available resources to obtain, update and review the patients current medications (includes all prescriptions, OTC, herbals, cannabis, and nutritional supplements).: Yes
[2025-02-28 06:13] LABS: Hematocrit 37.3 % (42.0-52.0); Hemoglobin 13.1 g/dL (14.0-18.0); Immature Granulocyte Percent A 2.2 % (0-0.5); Lymphocytes Absolute Auto 0.80 K/mm3 (0.9-3.2); Mean Corpuscular HGB Conc 35.1 g/dl (32-36); Mean Corpuscular Hemoglobin 34.0 pg (26-34); Mean Corpuscular Volume 96.9 fl (80-100); Nucleated Red Blood Cells Absolute Auto 0.000 K/mm3 (0.0-0.012); Nucleated Red Blood Cells Perc 0.0 % (0.0-0.2); Platelet Count Result 204 k/mm3 (150-375); Red Blood Count 3.85 M/mm3 (4.6-6.20); White Blood Count 7.7 K/mm3 (4.5-10.0)
[2025-02-28 06:37] LABS: Alanine Aminotransferase 228 U/L (6-50); Albumin Level 4.3 g/dL (3.5-5.1); Alkaline Phosphatase 202 U/L (38-126); Anion Gap 10 mmol/L (4-12); Aspartate Amino Transferase 410 U/L (17-59); Bilirubin,Total 7.3 mg/dL (0.2-1.3); Blood Urea Nitrogen 11 mg/dL (9-20); Calcium 9.7 mg/dL (8.4-10.2); Carbon Dioxide 30 mmol/L (22-30); Chloride 91 mmol/L (98-107); Estimated CRCL calculation 110 ml/min; Estimated Glomerular Filt Rate > 60; Glucose 97 mg/dL (65-110); Potassium 3.9 mmol/L (3.4-5.0); Sodium 131 mmol/L (137-145); Total Protein 8.2 g/dL (6.3-8.2)
[2025-02-28 07:03] LABS: Lipase 8564 U/L (23-300)
[2025-02-28] MEDS: THIAMINE HCL 200 MG/2 ML VIAL 100 MG IV PUSH (08:28)
[2025-02-28] MEDS: ENOXAPARIN 40 MG/0.4 ML SYRINGE SUB-Q (08:28)
[2025-02-28 10:29] VITALS: BP 130/82
[2025-02-28] MEDS: ARTIFICIAL TEARS OPHTH SOLN 15 ML BOTTLE 1 DROP EACH EYE (12:10)
[2025-02-28] MEDS: LACTULOSE 20 GM/30 ML UDC PO (12:14)
[2025-02-28] MEDS: THIAMINE 500 MG/NS 100 ML 500 MG/100 ML BAG 200 MG IVPB (12:14)
== END 2025-02-28 12:31 | disposition left against medical advice (07) ==
LOC: ANHED 15:52 → ANH3MED 17:28
PROVIDERS: Internal Medicine; Admitting Provider Internal Medicine; Emergency Provider Emergency Medicine; PCP Family Medicine; Visit Provider Internal Medicine
DX: R17 Unspecified jaundice (principal); K86.0 Alcohol-induced chronic pancreatitis; G93.41 Metabolic encephalopathy; R74.01 Elevation of levels of liver transaminase levels; R44.2 Other hallucinations; F10.10 Alcohol abuse, uncomplicated; F17.290 Nicotine dependence, other tobacco product, uncomplicated
CPT/HCPCS: 36415; 70450; 74177; 74183; 76376; 76705; 80053; 80074; 81001; 82077; 82140; 82607; 82746; 82948; 83605; 83690; 85025; 85610; 85730; 93005; 96361; 96372; 96374; 99285; A9270; A9577; G0378; J1650; J3411; J7120; Q9967

== ENCOUNTER 2025-02-28 14:55 | Inpatient (IN) | payer BC, SELFPAY ==
--- OUTSIDE RECORDS SUMMARY | 2025-02-28 15:00 | XMS_ITS | Patient Health Record ---
Author Organization [facility] [employer] [facility] Address [address] [facility] [address] [place] [address] Care Team Providers Care Belt Loop Cutter Name Role Phone Amor Jimenez Unavailable [phone] Reason For Referral No Information Social History Social History Additional Details Category Social Info Options Details Migrated Social History Migrated Social History Alcohol Intake: Occasional 03/16/2020,Tobacco Years: Current every day smoker 03/16/2020 Plan Of Treatment No Information Insurance Providers Payer Name Payer Address Payer Phone Subscriber Number Group Number Insured Name Patient Relationship to Insured Coverage Start Date Coverage End Date [facility] [employer] [address] [place] [address] [id number] NERI AGUILAR Self - patient is the insured
--- OUTSIDE RECORDS SUMMARY | 2025-02-28 15:00 | XMS_ITS | Clinical Summary ---
Author Organization [facility] Care Team Providers Care Farm Specialist Name Role Phone Unavailable Primary Care Provider Unavailabl e Social History Tobacco Use Types Packs/Day Years Used Date Smoking Tobacco: Never Assessed Sex and Gender Information Value Date Recorded Sex Assigned at Not on file Legal Sex Male 1:52 PM RFID SPECIALIST Gender Identity Not on file Sexual Orientation [...]
[2025-02-28 15:17] VITALS: BP 143/91; PULSE 124; RESP 20; TEMP 37.2; O2SAT 97
[2025-02-28 16:52] VITALS: BP 135/99; PULSE 107; RESP 14; TEMP 36.6; O2SAT 97
[2025-02-28 18:18] LABS: Hematocrit 38.3 % (42.0-52.0); Hemoglobin 13.6 g/dL (14.0-18.0); Immature Granulocyte Percent A 1.3 % (0-0.5); Lymphocytes Absolute Auto 0.93 K/mm3 (0.9-3.2); Mean Corpuscular HGB Conc 35.5 g/dl (32-36); Mean Corpuscular Hemoglobin 34.3 pg (26-34); Mean Corpuscular Volume 96.5 fl (80-100); Nucleated Red Blood Cells Absolute Auto 0.000 K/mm3 (0.0-0.012); Nucleated Red Blood Cells Perc 0.0 % (0.0-0.2); Platelet Count Result 233 k/mm3 (150-375); Red Blood Count 3.97 M/mm3 (4.6-6.20); White Blood Count 9.4 K/mm3 (4.5-10.0)
[2025-02-28 18:30] LABS: Alanine Aminotransferase 241 U/L (6-50); Albumin Level 4.6 g/dL (3.5-5.1); Alkaline Phosphatase 234 U/L (38-126); Ammonia 15 umol/L (9-30); Anion Gap 15 mmol/L (4-12); Aspartate Amino Transferase 373 U/L (17-59); Bilirubin,Total 7.5 mg/dL (0.2-1.3); Blood Urea Nitrogen 15 mg/dL (9-20); Calcium 10.3 mg/dL (8.4-10.2); Carbon Dioxide 23 mmol/L (22-30); Chloride 95 mmol/L (98-107); Estimated CRCL calculation 96 ml/min; Estimated Glomerular Filt Rate > 60; Glucose 104 mg/dL (65-110); Potassium 3.5 mmol/L (3.4-5.0); Sodium 133 mmol/L (137-145); Total Protein 9.0 g/dL (6.3-8.2)
[2025-02-28 18:34] LABS: INR 1.1; Prothrombin Time 13.7 Seconds (11.1-14.7)
[2025-02-28 18:35] LABS: Partial Thromboplastin Time 33.9 Seconds (22.3-36.8)
--- NOTE | 2025-02-28 19:12 | PC.NURSE ---
Pt saw in hallway with his thing stating he heard nicole and xander speaking about him and he was leaving. Pt had ripped his IV out. CAROL Gutierrez made aware and speaking with patient.
--- NOTE | 2025-02-28 19:56 | ED_ITS ---
HPI - General Adult General Chief complaint: Recheck/Abnormal Lab/Rx Stated complaint: jaundice, liver issues, Time Seen by Provider: 02/28/25 16:41 History of Present Illness HPI narrative: 44-year-old male present to the emergency department for evaluation for worsening mental status. Patient is most likely going through alcohol withdrawal. Patient was admitted yesterday for metabolic encephalopathy/alcohol withdrawal and elevated transaminitis. Patient became more confused today and signed out AMA. Patient is still confused upon arrival emergency department but he is willing to be readmitted. Was apologetic for leaving patient does have paranoia and delusions in the emergency department. Patient feels that staff is talking about him when they are not. Patient was making delusional statements about the employment status of some of the nurses. Related Data Home Medications ?Medication ?Instructions ?Recorded ?Confirmed ?Last Taken ?Type No Home Medications 02/28/25 02/28/25 U nknown History Allergies Allergy/AdvReac Type Severity Reaction Status Date / Time No Known Allergies Allergy Verified 02/27/25 18:29 Review of Systems 2 Review of Systems: All systems reviewed & are unremarkable except as noted in HPI and below PMFSH Past Medical History Medical History (Updated 02/28/25 @ 20:02 by Lan Gutierrez MD) Obesity Chronic alcohol abuse Surgical History Surgical History (Updated 02/28/25 @ 10:09 by Kathrine Pinon DO) No significant past surgical history Family History Family History Mother Lung cancer Grandparent Lung cancer Colon cancer Alzheimer dementia Social History Social History (Updated 02/28/25 @ 10:43 by Kathrine Pinon DO) Social History: The patient has custody of his 2 daughters ages 8 and 17 years old. 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 He has drink heavily for a year as discussed above. He has vape for 15-20 years. He denies illicit substance use. Code status: Full code Surrogate decision maker: Tisha (oldest daughter) phone number [phone] Years smoked: 20 Smoking status: Current every day smoker Tobacco type: e-cigarettes/vaping Alcohol intake: current Drinks per week: 12 Substance use: never Lack of Transportation: No Lack of Food: Never True Current Housing: I Have Housing Concerned About Future Housing: No Difficulty Paying Gas/Electric Bills: No Difficulty Paying for Meds: No Currently Unemployed: No Education: High School Diploma/GED Difficulty w/ Childcare or Family Care: No Spiritual care concerns: No Exam 2 Narrative: APPEARANCE: Ill-appearing HEAD: normocephalic, atraumatic. EYES: Scleral icterus NOSE: Normal no drainage EARS:TMS clear with good light reflex. ESPIRATORY: Airway patent, respirations nonlabored. Clear to auscultation bilaterally, no rales, rhonchi, wheezing. CARDIOVASCULAR: Regular rate and rhythm without murmurs rubs or gallops. ABDOMINAL: Soft, nontender, nondistended, normal bowel sounds MUSCULOSKELETAL: Moves all extremities. Strength/ROM intact, No edema, No calf tenderness. NEURO: Alert. Cranial nerves II through XII intact. Good gait. Good coordination SKIN: Jaundice PSYCHIATRIC: Confused Course Vital Signs Vital signs: Vital Signs Temperature 98.9 F 02/28/25 15:17 Pulse Rate 124 H 02/28/25 15:17 Respiratory Rate 20 02/28/25 15:17 Blood Pressure 143/91 H 02/28/25 15:17 Pulse Oximetry 97 02/28/25 15:17 Oxygen Delivery Room Air 02/28/25 15:17 Temperature 98 F 02/28/25 16:52 Pulse Rate 107 H 02/28/25 16:52 Respiratory Rate 14 02/28/25 16:52 Blood Pressure 135/99 H 02/28/25 16:52 Pulse Oximetry 97 02/28/25 16:52 Oxygen Delivery Room Air 02/28/25 15:17 [facility] Narrative Medical decision making narrative: 44-year-old male presents emergency department for evaluation for persistent altered mental status. Patient most likely has metabolic encephalopathy/alcohol withdrawal. A discussion with the hospitalist patient was readmitted and treated with additional thiamine and patient was treated with phenobarbital in the emergency department. Patient did require multiple reorientation on order for him to stay in the emergency department. Differential Diagnosis Differential Diagnosis: Metabolic cephalopathy, alcohol withdrawal, pancreatitis Lab Data [facility] Lab Attestation statement: I personally reviewed the patient's lab results. 02/28/25 18:10 02/28/25 18:10 Labs: Lab Results 02/28/25 Range/Units 18:10 WBC 9.4 (4.5-10.0) K/mm3 RBC 3.97 L (4.6-6.20) M/mm3 Hgb 13.6 L (14.0-18.0) g/dL Hct 38.3 L (42.0-52.0) % MCV 96.5 (80-100) fl MCH 34.3 H (26-34) pg MCHC 35.5 (32-36) g/dl RDW 15.5 H (11.5-14.5) % Plt Count 233 (150-375) k/mm3 MPV 10.4 (7.4-10.4) fl Immature Gran % (Auto) 1.3 H (0-0.5) % Neut % (Auto) 71.4 (45.5-73.1) % Lymph % (Auto) 9.9 L (18.3-44.2) % [place] % (Auto) 15.5 H (2.6-8.5) % Eos % (Auto) 0.8 (0-4.4) % Baso % (Auto) 1.1 (0.2-1.2) % Lymph # (Auto) 0.93 (0.9-3.2) K/mm3 [place] # (Auto) 1.5 H (0.1-0.6) K/mm3 Eos # (Auto) 0.1 (0-0.3) K/mm3 Baso # (Auto) 0.1 (0.0-0.1) K/mm3 Abs Immat Gran (auto) 0.12 H (0.00-0.031) K/mm3 Absolute Neuts (auto) 6.7 (1.3-6.7) K/mm3 Absolute Nucleated RBC 0.000 (0.0-0.012) K/mm3 Nucleated RBC % 0.0 (0.0-0.2) % PT 13.7 (11.1-14.7) Seconds INR 1.1 APTT 33.9 (22.3-36.8) Seconds Sodium 133 L (137-145) mmol/L Potassium 3.5 (3.4-5.0) mmol/L Chloride 95 L (98-107) mmol/L Carbon Dioxide 23 (22-30) mmol/L Anion Gap 15 H (4-12) mmol/L BUN 15 (9-20) mg/dL Creatinine 0.90 (0.7-1.3) mg/dL Estim Creat Clear Calc 96 ml/min Estimated GFR > 60 (59 - ) Glucose 104 (65-110) mg/dL Calcium 10.3 H (8.4-10.2) mg/dL Total Bilirubin 7.5 H (0.2-1.3) mg/dL AST 373 H (17-59) U/L ALT 241 H (6-50) U/L Alkaline Phosphatase 234 H (38-126) U/L Ammonia 15 (9-30) umol/L Total Protein 9.0 H (6.3-8.2) g/dL Albumin 4.6 (3.5-5.1) g/dL Discharge Plan Discharge Clinical Impression: Hallucinations, Transaminitis, Metabolic encephalopathy, Chronic alcohol abuse Pancreatitis Qualifiers: Chronicity: chronic Pancreatitis type: alcohol induced Qualified Code(s): K86.0 - Alcohol-induced chronic pancreatitis Patient Disposition: Still a Patient Condition: Serious Patient Language: Chinese Prescriptions: No Action No Home Medications Follow-up/Referrals: Olegario,MD Fausto [Primary Care Provider, Unknown]
--- NOTE | 2025-02-28 20:11 | PM.IMHP2 ---
H&P: HPI History of Present Illness Date/Time: 02/28/25 20:11 Chief Complaint: Abdominal pain, confusion Narrative: 44-year-old male with a medical history of chronic alcohol abuse who presented back to the ER due to abdominal pain and worsening confusion. The patient had been admitted on the evening of the due to jaundice, pancreatitis and acute alcoholic hepatitis and altered mental status. He underwent MRCP to rule out biliary obstruction was no obstruction identified. He had actually denied having abdominal pain when I did is admission on the morning of the . At that time he had told me had not been having any pain since a few days after a quit drinking. However, when I saw him today he stated that he was having pain in his epigastric region and lower chest that radiated to his back. He reports the pain as a 6/10 in intensity. His altered mental status was thought to have hepatic encephalopathy but more likely alcohol withdrawal. He was having visual hallucinations of people standing in the corner and of individuals spying on him from the roof of the opposite building. He was also paranoid that he had a hole in his kidney that was draining down into his scrotum with no evidence of scrotal edema or lower extremity edema. Patient initially reported that his last alcoholic beverage was 15 days ago but we are unable to verify this. The patient was also evidently taking some [id number] cough suppressants to help him sleep after stopping his alcohol use which he associated with worsening of his symptoms. Patient evidently became more confused during the day and signed out of the hospital. When he returned home his family convinced him to come back to the hospital. In the ER the patient became agitated and pulled out his IV. He he was paranoid and having delusions that people were out in the [place]hm[place] talking about him. He stated that he heard is children out in the [place] talking about him and he was going to leave. 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 Labs in the ER demonstrated persistent elevation and transaminases and bilirubin but numbers were stable compared to labs on the morning of the . Hemoglobin was also stable. The patient states that his tremors have been getting worse at home and he admits he has been having trouble holding the urinal due to the degree of tremors. ER staff reported the patient's CIWA score was only 6. When the patient arrived to the intermediate unit his CIWA score was initially 8. 2-1/2 hours after my evaluation his CIWA score precipitously increased. The patient was seeing a place helicopter outside the window and hallucinating about a giant police dog in the room with him. Nursing staff reported that is CIWA score was 22. At the time I evaluation yesterday the patient was having intermittent esotropia of the right eye which was absent on today's evaluation. His tremor at the time of my evaluation was similar compared to yesterday he was slightly less diaphoretic. I had requested the patient received a phenobarbital loading dose in the ER. The dose was ordered but the patient refused the dosing and nursing staff allowed the patient refused despite patient having limited capacity to make such decisions given his paranoia and hallucinations with this acute encephalopathy. Given is acute worsening CIWA scores patient will be overflow to the ICU was in IMU status and will give phenobarbital loading dose now. Review of Systems Review of Systems: Review of systems not reliable due to the patient's clinical condition. REPLACED BY [facility] Past Medical History Medical History (Updated 03/01/25 @ 01:31 by Kathrine Pinon DO) Chronic alcohol abuse Surgical History Surgical History No significant past surgical history Family History Family History Mother Lung cancer Grandparent Lung cancer Colon cancer Alzheimer dementia Social History Social History Social History: The patient has custody of his 2 daughters ages 8 and 17 years old. 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 He has drink heavily for a year as discussed above. He has vape for 15-20 years. He denies illicit substance use. Code status: Full code Surrogate decision maker: Tisha (oldest daughter) phone number [phone] Years smoked: 20 Smoking status: Current some day smoker Tobacco type: e-cigarettes/vaping Second hand tobacco smoke exposure: No Alcohol intake: former Drinks per week: 12 Substance use: never Substance use type: does not use Lack of Transportation: No Lack of Food: Never True Current Housing: I Have Housing Concerned About Future Housing: No Difficulty Paying Gas/Electric Bills: No Difficulty Paying for Meds: No Currently Unemployed: YES Education: High School Diploma/GED Difficulty w/ Childcare or Family Care: No Spiritual care concerns: No Meds Home Medications and Allergies Home Medications ?Medication ?Instructions ?Recorded ?Confirmed ?Type No Home Medications 02/28/25 02/28/25 History Allergies Allergy/AdvReac Type Severity Reaction Status Date / Time No Known Allergies Allergy Verified 02/28/25 21:58 Vital Signs Vital Signs - 24 hr 02/28/25 15:17 02/28/25 16:52 Temperature 98.9 F 98 F Pulse Rate 124 H 107 H Respiratory Rate 20 14 Blood Pressure 143/91 H 135/99 H Pulse Oximetry 97 97 Oxygen Delivery Room Air Exam Narrative: Weight 90.1 kg BMI 28.5 Const: Other: No acute distress, sitting up in bed, appears stated age, restless HENMT: Other: Mucous membranes are tacky, no oral pharyngeal erythema, fair dentition Eyes: Other: Marked scleral icterus, no conjunctival pallor, pupils are equal and reactive, extra ocular exam was limited due to patient's distraction Neck: Other: No JVD, no lymphadenopathy Resp: Other: Clear to auscultation bilaterally, no increased work of breathing Cardio: Other: regular rate, regular rhythm, 2+ bilateral radial pedal pulses GI: Other: Distended, normoactive bowel sounds, soft, mild tenderness in epigastrium Skin: Other: Marked jaundice, mildly diaphoretic Neuro: Other: Alert oriented person place time and recent events but having active visual and auditory hallucinations. Patient has moderate tremor with any movement of his hands. He has no gross motor deficits. Extrem: Other: No clubbing, cyanosis or edema, 5/5 strength bilateral upper and lower extremities Psych: Other: Patient is intermittently argumentative and uncooperative, poor judgment and insight, at this time I do not feel that the patient has the capacity to refuse care given his hallucinations and confusion. Results Labs Labs: Laboratory Tests 02/28/25 18:10 02/28/25 18:10 02/28/25 03/01/25 18:10 00:19 WBC 9.4 RBC 3.97 L Hgb 13.6 L Hct 38.3 L MCV 96.5 MCH 34.3 H MCHC 35.5 RDW 15.5 H Plt Count 233 MPV 10.4 Immature Gran % (Auto) 1.3 H Neut % (Auto) 71.4 Lymph % (Auto) 9.9 L [place] % (Auto) 15.5 H Eos % (Auto) 0.8 Baso % (Auto) 1.1 Lymph # (Auto) 0.93 [place] # (Auto) 1.5 H Eos # (Auto) 0.1 Baso # (Auto) 0.1 Abs Immat Gran (auto) 0.12 H Absolute Neuts (auto) 6.7 Absolute Nucleated RBC 0.000 Nucleated RBC % 0.0 PT 13.7 INR 1.1 APTT 33.9 Sodium 133 L Potassium 3.5 Chloride 95 L Carbon Dioxide 23 Anion Gap 15 H BUN 15 Creatinine 0.90 Estim Creat Clear Calc 96 Estimated GFR > 60 Glucose 104 POC Capillary Glucose 122 H Calcium 10.3 H Total Bilirubin 7.5 H AST 373 H ALT 241 H Alkaline Phosphatase 234 H Ammonia 15 Total Protein 9.0 H Albumin 4.6 Critical Care Time Critical Care Time Critical Care Time: Yes Indication: Alcohol withdrawal with delirium Initial evaluation, discuss w/ involved parties, attempting to gather old records: 10 minutes Documenting medical record: 10 minutes Review of results (EKG's, labs, imaging): 5 minutes Serial repeat bedside evaluation: 10 minutes Discussing case with multiple memebers of the care team and consultants: 15 minutes Total Critical Care Time: 50 Critical Care Time Overview: Due to a high probability of clinically significant, life threatening deterioration, the patient required my highest level of preparedness to intervene emergently and I personally spent this critical care time directly and personally managing the patient. This critical care time included obtaining a history; examining the patient; pulse oximetry; ordering and review of studies; arranging urgent treatment with development of a management plan; evaluation of patient's response to treatment; frequent reassessment; and discussions with other providers. It was exclusive of separately billable procedures and treating other patients and teaching time. Please see Assessment and Plan section and the rest of the note for further information on patient assessment and treatment. Quality VTE Prophylaxis VTE prophylaxis: pharmacologic ordered (Lovenox 40 mg subQ daily.) Assessment and Plan Assessment and plan (1) Acute hyperactive alcohol withdrawal delirium: Code(s): F10.931 - Alcohol use, unspecified with withdrawal delirium Status: Acute (2) Acute alcoholic hepatitis: Code(s): K70.10 - Alcoholic hepatitis without ascites Status: Acute (3) Pancreatitis: Qualifiers: Chronicity: chronic Pancreatitis type: alcohol induced Qualified Code(s): K86.0 - Alcohol-induced chronic pancreatitis Code(s): K85.90 - Acute pancreatitis without necrosis or infection, unspecified Status: Acute (4) Hypercalcemia: Code(s): E83.52 - Hypercalcemia Status: Acute (5) High serum protein level: Code(s): R77.9 - Abnormality of plasma protein, unspecified Status: Acute Plan Patient presents with encephalopathy and auditory and visual hallucinations. Patient is alert oriented x3 but is having delusions and mild psychomotor agitation. Patient's CIWA scores have become more elevated in the last 24 hours with precipitous increase within the last couple of hours. Patient will be started on phenobarbital load 12 milligram/kilogram with the 1st portion of the load being 4 point 8 milligram/kilogram IV x1. If delirium and agitation persist will proceed with 2 additional aliquots of phenobarbital 3 and 6 hours later of 3.6 milligrams/kilogram. The patient was having some ataxia and gait instability when standing up yesterday and was having some difficulty with gaze. Patient did receive 2 doses of high-dose thiamin yesterday. Will continue high-dose thiamine for another 4 days 500 mg Q 8 hours. Patient does have an elevated serum total protein and acutely elevated serum calcium likely due to volume depletion. The patient has had evidence of recent pancreatitis in likely as low oral intake. Will increase the patient's IV fluids to 200 mL per hour for 12-24 hours then re-evaluate fluid status with repeat CMP in a.m.. Will place patient on D5 half-normal saline +20 mEq of potassium chloride. Will also repeat CBC to rule out any developing leukocytosis that could indicate infection. Will repeat lipase level given the patient's report of recurrent abdominal pain. Will change patient's diet from heart healthy to clear liquids until abdominal pain is resolved. Will provide morphine as needed for pain 4 mg q.4 hours. Will also add Protonix as the patient may have some component of alcoholic gastritis or GERD contributing to his abdominal symptoms. Hospitalist MIPS Advance Care Plan I have confirmed that the patient's Advanced Care Plan is present, code status is documented, or surrogate decision maker is listed in patient medical record.: Yes Medication Reconciliation I have utilized all available resources to obtain, update and review the patients current medications (includes all prescriptions, OTC, herbals, cannabis, and nutritional supplements).: Yes
[2025-02-28] MEDS: KCL 20 MEQ/D5/0.45% SOD CHL 1,000 ML 200 ML IV CONT (20:26)
[2025-02-28] MEDS: SODIUM CHLORIDE 0.9% IV 1,000 ML 999 ML IV CONT (20:26)
[2025-02-28 20:50] VITALS: BP 142/97; PULSE 85; RESP 20; O2SAT 100
--- NOTE | 2025-02-28 20:51 | WPCEDHO ---
ED Hand Off Checklist All vitals saved:yes IV Site documented:yes All med administrations documented:yes Triage Note Triage Note Pt returning to ED after being 02/28/25 16:47 admitted for pancreatitis and jaundice, pt signed out AMA and came back to be readmitted. Pt is currently having 6/10 abdominal pain that radiates to his back. This RN agrees with this assessment. Pt is A&Ox4, in NAD. Pt states the abdominal pain started at least 6 months ago. Allergies No Known Allergies Allergy (Verified 02/27/25 18:29) Family History (Last Reviewed 02/28/25 @ 10:07 by Kathrine Pinon DO) Mother Lung cancer Grandparent Lung cancer Colon cancer Alzheimer dementia Active Medications including assessments/comments Sodium Chloride (Normal Saline Iv) 1,000 mls @ 999 mls/hr IV CONT .Q1H1M ONE Stop: 02/28/25 21:02 Last Admin: 02/28/25 20: Dose: 999 mls/hr Documented By: DEMARCO Infusion/Titration Document 02/28/25 20:26 DEMARCO (Rec: 02/28/25 20:26 DEMARCO [id number]) Intake IV Site Peripheral Access Right Antecubital Container Volume 1,000 Waste Amount 0 Dosing Infusion Rate 999 Cumulative Dose Not Applicable Increase/Decrease Started Elapsed Time Elapsed Time ( 0m minutes) Potassium Chloride/Dextrose/Sod Cl (Kcl 20 Meq/D5/0.45% Sod Chl) 1,000 mls @ 200 mls/hr IV CONT .Q5H LAVONNE Last Admin: 02/28/25 20:26 Dose: 200 mls/hr Documented By: DEMARCO Infusion/Titration Document 02/28/25 20:26 DEMARCO (Rec: 02/28/25 20:26 DEMARCO [id number]) Intake IV Site Peripheral Access Right Antecubital Container Volume 1,000 Waste Amount 0 Dosing Infusion Rate 200 Cumulative Dose Not Applicable Increase/Decrease Started Elapsed Time Elapsed Time ( 0m minutes) Administered/Completed Medications Discontinued Medications Phenobarbital Sodium 400 mg/ (Sodium Chloride) 103.0769 mls @ 206.154 mls/hr IVPB ONCE ONE Stop: 02/28/25 19:44 Last Admin: 02/28/25 20:10 Dose: Not Given Documented By: MONICA Non-Admin Reason: Patient Refuses Thiamine HCl () 500 mg in 100 mls @ 200 mls/hr IVPB ONCE ONE Stop: 02/28/25 20:39 Last Admin: 02/28/25 20:19 Dose: Not Given Documented By: MONICA Non-Admin Reason: Patient Refuses Notes 02/28/25 19:12 Nurse Note by Elizabeth Hoffmann Pt saw in hallway with his thing stating he heard nicole and xander speaking about him and he was leaving. Pt had ripped his IV out. EDP Matt made aware and speaking with patient. Initialized on 02/28/25 19:12 - END OF NOTE Interventions/Assessments General Assessment Start: 02/28/25 14:56 Freq: Status: Active Protocol: Document 02/28/25 16:49 MCO (Rec: 02/28/25 16:50 MCO [id number]) GA Gastrointestinal Assessment Gastrointestinal Pain Symptoms Pattern Normal Flatus Present GA Integumentary Assessment Fingernail Color Yellow Nail Bed Appearance White,Yellow IV / Saline Lock, Insert Start: 02/28/25 14:56 Freq: Status: Active Protocol: Document 02/28/25 19:44 MONICA (Rec: 02/28/25 19:45 MONICA [id number]) IV Assessment Peripheral Access Right Antecubital IV Catheter Access Initiated IV Insertion Date 02/28/25 IV Insertion Time 19:44 Catheter Gauge 18 IV Insertion 1 Attempts IV Site Assessment WNL IV Care and WNL Maintenance Peripheral Access Left Antecubital IV Catheter Access Discontinued Access IV Care and Catheter Removed Intact Maintenance Last Vital Signs Temperature 98 F 02/28/25 16:52 Pulse Rate 85 02/28/25 20:50 Respiratory Rate 20 02/28/25 20:50 Pulse Oximetry 100 02/28/25 20:50 Blood Pressure 142/97 H 02/28/25 20:50 Blood Pressure Mean 112 02/28/25 20:50 Blood Pressure Position Sitting 02/28/25 16:52 Oxygen Delivery Room Air 02/28/25 15:17 Weight 91 kg 02/28/25 16:47 Last Result - Abnormals Only RBC 3.97 M/mm3 (4.6-6.20) L 02/28/25 18:10 Hgb 13.6 g/dL (14.0-18.0) L 02/28/25 18:10 Hct 38.3 % (42.0-52.0) L 02/28/25 18:10 MCH 34.3 pg (26-34) H 02/28/25 18:10 RDW 15.5 % (11.5-14.5) H 02/28/25 18:10 Immature Gran % (Auto) 1.3 % (0-0.5) H 02/28/25 18:10 Lymph % (Auto) 9.9 % (18.3-44.2) L 02/28/25 18:10 [place] % (Auto) 15.5 % (2.6-8.5) H 02/28/25 18:10 [place] # (Auto) 1.5 K/mm3 (0.1-0.6) H 02/28/25 18:10 Abs Immat Gran (auto) 0.12 K/mm3 (0.00-0.031) H 02/28/25 18:10 Sodium 133 mmol/L (137-145) L 02/28/25 18:10 Chloride 95 mmol/L (98-107) L 02/28/25 18:10 Anion Gap 15 mmol/L (4-12) H 02/28/25 18:10 Calcium 10.3 mg/dL (8.4-10.2) H 02/28/25 18:10 Total Bilirubin 7.5 mg/dL (0.2-1.3) H 02/28/25 18:10 AST 373 U/L (17-59) H 02/28/25 18:10 ALT 241 U/L (6-50) H 02/28/25 18:10 Alkaline Phosphatase 234 U/L (38-126) H 02/28/25 18:10 Total Protein 9.0 g/dL (6.3-8.2) H 02/28/25 18:10 Most Recent CIWA Score CIWA Total Score 3 02/28/25 19:46 Most Recent Suicide Severity Rating Suicide Severity Rating NO RISK INDICATED 02/28/25 16:47
--- NOTE | 2025-02-28 21:33 | ADMGEN ---
This patient, Joe Naik, was admitted to IMU Room 231-01. Patient/family oriented to hospital policies and general routines including ID bracelet, bed and alarms, visiting hours, pain management, procedures, bathroom and other care routines, personal items, smoking policy, room service/diet, and visiting hours. Information on how to activate the Rapid Response Team has been discussed. Patient/Family are encouraged to report perceived risks to care and to ask questions if they do not understand what they are told or what they should do.
[2025-02-28 21:35] VITALS: BMI 28.5
[2025-02-28 21:39] VITALS: BP 138/94; PULSE 85; RESP 19; TEMP 36.9; O2SAT 100
[2025-02-28 22:00] VITALS: PULSE 81
[2025-03-01] VITALS (32 sets, daily range): BP systolic 91–147; BP diastolic 60–98; PULSE 53–106; RESP 11–25; TEMP 36.6–37.1; O2SAT 92–100
[2025-03-01] MEDS: LORazepam INJ (*CRX) 2 MG/ML VIAL IV PUSH (01:32)
[2025-03-01] MEDS: KCL 20 MEQ/D5/0.45% SOD CHL 1,000 ML 200 ML IV CONT (03:25)
--- NOTE | 2025-03-01 03:56 | PC.NURSE ---
0235 on 03/01/2025 Security ( Emily) was called to bedside because pt was threatening to shoot staff, pt then began threatening security and attempting to just out of bed. 2 additional security guards were called to bed side to try to deescalate situation but pt began to threaten them as well. Pt was put into 4 point restraints for safety. Pt said they are gonna come in here and shoot you guys pt was reminded he is at [facility] and no one is here to hurt him. at 0318 went to check on pt because telly leads were off, leads were found to be in pt mouth when asking pt to put leads on correctly pt stated I took a nap because I knew this was gonna happen pt then started to thrust hips and told staff get on. pt continues to try to get out of restraints.
[2025-03-01 04:40] LABS: Hematocrit 31.2 % (42.0-52.0); Hemoglobin 11.1 g/dL (14.0-18.0); Mean Corpuscular HGB Conc 35.6 g/dl (32-36); Mean Corpuscular Hemoglobin 34.6 pg (26-34); Mean Corpuscular Volume 97.2 fl (80-100); Platelet Count Result 198 k/mm3 (150-375); Red Blood Count 3.21 M/mm3 (4.6-6.20); White Blood Count 8.0 K/mm3 (4.5-10.0)
[2025-03-01 04:50] LABS: Ammonia 13 umol/L (9-30)
[2025-03-01 05:14] LABS: Alanine Aminotransferase 189 U/L (6-50); Albumin Level 3.7 g/dL (3.5-5.1); Alkaline Phosphatase 191 U/L (38-126); Anion Gap 9 mmol/L (4-12); Aspartate Amino Transferase 310 U/L (17-59); Bilirubin,Total 5.8 mg/dL (0.2-1.3); Blood Urea Nitrogen 12 mg/dL (9-20); Calcium 8.9 mg/dL (8.4-10.2); Carbon Dioxide 24 mmol/L (22-30); Chloride 98 mmol/L (98-107); Estimated CRCL calculation 115 ml/min; Estimated Glomerular Filt Rate > 60; Glucose 104 mg/dL (65-110); Lipase 1905 U/L (23-300); Potassium 3.1 mmol/L (3.4-5.0); Sodium 131 mmol/L (137-145); Total Protein 7.1 g/dL (6.3-8.2)
[2025-03-01] MEDS: THIAMINE 500 MG/NS 100 ML 500 MG/100 ML BAG 200 MG IVPB ×3 (05:18→21:47)
[2025-03-01] MEDS: LORazepam INJ (*CRX) 2 MG/ML VIAL 1 MG IV PUSH ×2 (08:14→19:53)
[2025-03-01] MEDS: OLANZapine 10 MG, WATER, STERILE FOR INJECTION 2.1 ML IM ×2 (08:16→16:55)
--- NOTE | 2025-03-01 08:33 | P.PNINT_ITS ---
Assessment and Plan Assessment and Plan (1) Acute alcoholic hepatitis: Code(s): K70.10 - Alcoholic hepatitis without ascites Status: Acute (2) Acute hyperactive alcohol withdrawal delirium: Code(s): F10.931 - Alcohol use, unspecified with withdrawal delirium Status: Acute (3) Hallucinations: Code(s): R44.3 - Hallucinations, unspecified Status: Acute Plan 1. Neurologically: Alcohol withdrawal with significant delirium. Will schedule him on Zyprexa on top of Ativan. He has received phenobarbital as well. Will consider Precedex for baseline maintenance. Continue thiamine and folic acid. 2. Cardiovascular: Tachycardia is expected. 3. Respiratory: On room air no distress. 4. GI. Patient did not have any abdominal pain on examination today. MRCP done recently showed evidence of hepatic steatosis but the pancreas did not look abnormal. On the other hand his lipase has been elevated although he has decreased significantly today. 5. and renal: Electrolytes are normal with a sodium level of 131 a potassium of 3.1. Will change IV fluids and continue replacing electrolytes. 6. Endocrine: No history of hypothyroidism or diabetes 7. DVT prophylaxis: Will start Lovenox. 8. Hematologically: CBC Shows normal white blood cell count with anemia. Platelet count is 198. 9. Id currently on no antibiotic Subjective Date/time seen: 03/01/25 08:33 Interval history: The patient became more agitated today requiring IM Zyprexa as he would pull his IVs. Exam Narrative: The patient is agitated delirious and paranoid Const: General: no acute distress Eyes: General: appearance normal, both eyes and all related structures Neck: Neck: no JVD Resp: Effort & Inspection: normal respiratory effort Auscultation: clear to auscultation bilaterally Cardio: Rate: regular rate GI: GI Palp: Yes Soft to palpation Other: Diminished bowel sounds nontender Skin: Other: Icterus Neuro: Other: Delirious, agitated Extrem: General: normal to inspection Psych: Affect: Anxious affect present and Hostile affect present Objective Data Vital Signs Vital Signs: Vital Signs - 24 hr 02/28/25 15:17 02/28/25 16:52 02/28/25 20:50 Temperature 98.9 F 98 F Pulse Rate 124 H 107 H 85 Pulse Rate [Monitor] Respiratory Rate 20 14 20 Blood Pressure 143/91 H 135/99 H 142/97 H Pulse Oximetry 97 97 100 Oxygen Delivery Room Air 02/28/25 21:39 02/28/25 22:00 03/01/25 00:00 Temperature 98.5 F Pulse Rate 85 81 Pulse Rate [Monitor] 85 Respiratory Rate 19 Blood Pressure 138/94 H Pulse Oximetry 100 Oxygen Delivery 03/01/25 00:00 03/01/25 00:00 03/01/25 02:00 Temperature 98.1 F Pulse Rate 81 89 106 H Pulse Rate [Monitor] Respiratory Rate 18 Blood Pressure 147/87 H Pulse Oximetry 97 Oxygen Delivery 03/01/25 02:17 03/01/25 03:20 03/01/25 03:36 Temperature Pulse Rate Pulse Rate [Monitor] 103 H 84 80 Respiratory Rate Blood Pressure Pulse Oximetry Oxygen Delivery 03/01/25 03:40 03/01/25 04:00 03/01/25 04:00 Temperature Pulse Rate 78 73 91 Pulse Rate [Monitor] Respiratory Rate 18 15 Blood Pressure 104/86 Pulse Oximetry 98 Oxygen Delivery Room Air 03/01/25 05:06 03/01/25 06:00 Temperature Pulse Rate 79 Pulse Rate [Monitor] 76 Respiratory Rate Blood Pressure Pulse Oximetry Oxygen Delivery Intake/Output Intake/Output: Intake & Output 02/26/25 02/27/25 02/28/25 03/01/25 23:59 23:59 23:59 23:59 Intake Total 1000 1307 Balance 1000 1307 Meds/Results Medications: Active Medications Generic Name Dose Route Start Last Admin Trade Name Freq PRN Reason Stop Dose Admin Olanzapine 10 mg/ Sterile 0 mg 03/01/25 17:00 Water 2.1 ml IM BID [facility] Folic Acid 1 mg 03/01/25 09:00 Folic Acid 1 Mg Tablet PO DAILY LAVONNE Thiamine HCl 500 mg in 100 mls @ 200 mls/hr 03/01/25 05:00 03/01/25 05:50 IVPB 03/05/25 04:59 Infused Q8H LAVONNE Infusion Potassium Chloride/Dextrose/Sod Cl 1,000 mls @ 200 mls/hr 02/28/25 20:10 03/01/25 03:25 Kcl 20 Meq/D5/0.45% Sod Chl IV CONT 200 mls/hr .Q5H LAVONNE Administration Potassium Chloride 40 meq/ 520 mls @ 130 mls/hr 03/01/25 08:00 Sodium Chloride IVPB 03/01/25 11:59 ONCE ONE Dexmedetomidine HCl 400 mcg in 100 mls @ 18 mls/hr 03/01/25 08:30 Precedex 400 Mcg/100 Ml IV CONT .Q5H34M [facility] Protocol 0.8 MCG/KG/HR Lorazepam 1 mg 03/01/25 08:15 Lorazepam Inj (*Crx) 2 Mg/Ml Vial IV PUSH Q1-2H PRN Anxiety Morphine Sulfate 4 mg 03/01/25 01:02 Morphine Sulfate (*Crx) 4 Mg/Ml Inj IV PUSH Q4H PRN Pain Rated 7-10 Multivitamins Therapeutic 1 tablet 03/01/25 09:00 Multivitamins Therapeutic Tab (*Bkc) PO QAM LAVONNE Pantoprazole Sodium 40 mg 03/01/25 09:00 Pantoprazole Sodium Iv 40 Mg [facility] [facility] [place] Labs: Laboratory Results - last 24 hr 02/28/25 03/01/25 03/01/25 18:10 00:19 04:22 WBC 9.4 8.0 RBC 3.97 L 3.21 L Hgb 13.6 L 11.1 L Hct 38.3 L 31.2 L MCV 96.5 97.2 MCH 34.3 H 34.6 H MCHC 35.5 35.6 RDW 15.5 H 15.4 H Plt Count 233 198 MPV 10.4 10.5 H Immature Gran % (Auto) 1.3 H Neut % (Auto) 71.4 Lymph % (Auto) 9.9 L [place] % (Auto) 15.5 H Eos % (Auto) 0.8 Baso % (Auto) 1.1 Lymph # (Auto) 0.93 [place] # (Auto) 1.5 H Eos # (Auto) 0.1 Baso # (Auto) 0.1 Abs Immat Gran (auto) 0.12 H Absolute Neuts (auto) 6.7 Absolute Nucleated RBC 0.000 Nucleated RBC % 0.0 PT 13.7 INR 1.1 APTT 33.9 Sodium 133 L 131 L Potassium 3.5 3.1 L Chloride 95 L 98 Carbon Dioxide 23 24 Anion Gap 15 H 9 BUN 15 12 Creatinine 0.90 0.74 Estim Creat Clear Calc 96 115 Estimated GFR > 60 > 60 Glucose 104 104 POC Capillary Glucose 122 H Calcium 10.3 H 8.9 Total Bilirubin 7.5 H 5.8 H AST 373 H 310 H ALT 241 H 189 H Alkaline Phosphatase 234 H 191 H Ammonia 15 13 Total Protein 9.0 H 7.1 Albumin 4.6 3.7 Lipase 1905 H Critical Care Time Critical Care Time Critical Care Time: Yes Time Type: Intermittent Initial evaluation, discuss w/ involved parties, attempting to gather old records: 15 minutes Documenting medical record: 15 minutes Review of results (EKG's, labs, imaging): 10 minutes Serial repeat bedside evaluation: 20 minutes Discussing case with multiple memebers of the care team and consultants: 10 minutes Total Critical Care Time: 70
[2025-03-01] MEDS: HALOPERIDOL LACTATE 5 MG/ML VIAL IM (08:49)
[2025-03-01] MEDS: POTASSIUM CHLORIDE INJ 40 MEQ in SODIUM CHLORIDE 0.9% IV 500 ML 130 MEQ IVPB (09:36)
[2025-03-01] MEDS: FOLIC ACID 1 MG/0.2 ML INJ IV PUSH (09:36)
[2025-03-01] MEDS: SODIUM CHLORIDE 0.9% IV 1,000 ML 100 ML IV CONT (09:56)
[2025-03-01] MEDS: PANTOPRAZOLE SODIUM IV 40 MG VIAL IV PUSH (09:56)
[2025-03-01] MEDS: ENOXAPARIN 40 MG/0.4 ML SYRINGE SUB-Q (09:56)
[2025-03-01] MEDS: dexmedeTOMIDine 400 MCG/100 ML 400 MCG/100 ML BAG IV CONT (10:40)
[2025-03-01] MEDS: dexmedeTOMIDine 400 MCG/100 ML 400 MCG/100 ML BAG 13.5 MCG IV CONT (22:00)
[2025-03-02] VITALS (25 sets, daily range): BP systolic 98–144; BP diastolic 68–102; PULSE 46–97; RESP 11–22; TEMP 36.4–36.6; O2SAT 91–100
[2025-03-02] MEDS: SODIUM CHLORIDE 0.9% IV 1,000 ML 100 ML IV CONT ×2 (01:01→13:22)
[2025-03-02 04:29] LABS: Alanine Aminotransferase 179 U/L (6-50); Albumin Level 3.8 g/dL (3.5-5.1); Alkaline Phosphatase 174 U/L (38-126); Anion Gap 15 mmol/L (4-12); Aspartate Amino Transferase 225 U/L (17-59); Bilirubin,Total 5.6 mg/dL (0.2-1.3); Blood Urea Nitrogen 9 mg/dL (9-20); Calcium 9.1 mg/dL (8.4-10.2); Carbon Dioxide 17 mmol/L (22-30); Chloride 108 mmol/L (98-107); Estimated CRCL calculation 131 ml/min; Estimated Glomerular Filt Rate > 60; Glucose 68 mg/dL (65-110); Lipase 811 U/L (23-300); Magnesium 2.0 mg/dL (1.6-2.3); Potassium 3.8 mmol/L (3.4-5.0); Sodium 140 mmol/L (137-145); Total Protein 7.2 g/dL (6.3-8.2)
[2025-03-02] MEDS: THIAMINE 500 MG/NS 100 ML 500 MG/100 ML BAG 200 MG IVPB ×3 (06:00→22:10)
[2025-03-02] MEDS: PANTOPRAZOLE SODIUM IV 40 MG VIAL IV PUSH (08:21)
[2025-03-02] MEDS: LORazepam INJ (*CRX) 2 MG/ML VIAL 1 MG IV PUSH ×5 (08:21→23:01)
[2025-03-02] MEDS: MULTIVITAMINS THERAPEUTIC TAB (*BKC) 1 TABLET PO (08:21)
[2025-03-02] MEDS: ENOXAPARIN 40 MG/0.4 ML SYRINGE SUB-Q (08:22)
[2025-03-02] MEDS: OLANZapine 10 MG, WATER, STERILE FOR INJECTION 2.1 ML IM ×2 (08:26→17:01)
[2025-03-02] MEDS: FOLIC ACID 1 MG/0.2 ML INJ IV PUSH (08:31)
[2025-03-02] MEDS: chlordiazePOXIDE (*CRX) 25 MG CAPSULE 50 MG PO ×3 (11:07→23:02)
--- NOTE | 2025-03-02 13:25 | WPDINTPN2 ---
Assessment and Plan Assessment and Plan (1) Acute hyperactive alcohol withdrawal delirium: Code(s): F10.931 - Alcohol use, unspecified with withdrawal delirium Status: Acute (2) Hallucinations: Code(s): R44.3 - Hallucinations, unspecified Status: Acute (3) Chronic alcohol abuse: Code(s): F10.10 - Alcohol abuse, uncomplicated Status: Acute (4) Metabolic encephalopathy: Code(s): G93.41 - Metabolic encephalopathy Status: Acute (5) Transaminitis: Code(s): R74.01 - Elevation of levels of liver transaminase levels Status: Acute (6) Pancreatitis: Qualifiers: Chronicity: chronic Pancreatitis type: alcohol induced Qualified Code(s): K86.0 - Alcohol-induced chronic pancreatitis Code(s): K85.90 - Acute pancreatitis without necrosis or infection, unspecified Status: Acute Plan 1. Neurologically: Patient still has signs of alcohol withdrawal but less agitated than yesterday. He is on the benzodiazepine protocol as well as Zyprexa scheduled. 2. Cardiovascular: Blood pressure overall stable. 3. Respiratory on room air 4. GI starting p.o. intake when he is awake enough to eat your LFTs are improving as well as lipase which is 811. Patient does not have any abdominal pain or vomiting. 5. and Renal. Adequate urine output. Some component of hyperchloremia. Will repeat renal profile in the morning. 6. Endocrine: Blood sugar for on the lower side today we might consider adding some fluid onto the patient is able to eat consistently. 7. Hematologically. Will obtain CBC in the morning. 8. DVT prophylaxis: Lovenox 9. Id: No definite evidence of infection therefore no antibiotics prescribed. 10. Disposition: Okay to go to IMU Time Spent With Patient Time with patient: 25 - 35 minutes Subjective Date/time seen: 03/02/25 13:25 Interval history: Patient is less agitated today and is able to follow commands but still confused Exam Narrative: Patient is awake and interactive confused Const: General: comfortable Eyes: General: appearance normal, both eyes and all related structures Neck: Neck: no JVD Resp: Effort & Inspection: normal respiratory effort Cardio: Rate: regular rate GI: GI Palp: Yes Soft to palpation Auscultation: normal bowel sounds Skin: Other: Icterus Neuro: Speech: normal speech Extrem: General: normal to inspection Psych: Affect: Anxious affect present Attitude: Belligerent attititude/behavior present Objective Data Vital Signs Vital Signs: Vital Signs - 24 hr 03/01/25 14:00 03/01/25 14:00 03/01/25 14:00 Temperature Pulse Rate 61 61 61 Pulse Rate [Bilateral Radial Palpation] Pulse Rate [Monitor] Respiratory Rate 11 L 11 L Blood Pressure 106/74 Pulse Oximetry 99 Oxygen Delivery Oxygen Flow Rate 03/01/25 15:00 03/01/25 15:57 03/01/25 16:00 Temperature Pulse Rate 53 L 60 Pulse Rate [Bilateral Radial Palpation] Pulse Rate [Monitor] 61 Respiratory Rate 11 L 11 L Blood Pressure 95/68 L 94/74 L Pulse Oximetry 100 96 Oxygen Delivery Oxygen Flow Rate 03/01/25 16:00 03/01/25 16:01 03/01/25 16:58 Temperature Pulse Rate 61 60 61 Pulse Rate [Bilateral Radial Palpation] Pulse Rate [Monitor] Respiratory Rate 11 L 17 Blood Pressure Pulse Oximetry Oxygen Delivery Oxygen Flow Rate 03/01/25 17:00 03/01/25 17:31 03/01/25 17:54 Temperature Pulse Rate 56 L 55 L Pulse Rate [Bilateral Radial Palpation] Pulse Rate [Monitor] Respiratory Rate 11 L Blood Pressure 91/60 L 127/78 Pulse Oximetry 98 Oxygen Delivery Oxygen Flow Rate 03/01/25 18:00 03/01/25 18:00 03/01/25 19:00 Temperature Pulse Rate 57 L 56 L 87 Pulse Rate [Bilateral Radial Palpation] Pulse Rate [Monitor] Respiratory Rate 15 15 21 H Blood Pressure 129/80 106/68 Pulse Oximetry 100 Oxygen Delivery Oxygen Flow Rate 03/01/25 19:00 03/01/25 19:30 03/01/25 20:00 Temperature Pulse Rate 84 88 69 Pulse Rate [Bilateral Radial Palpation] Pulse Rate [Monitor] Respiratory Rate 22 H 25 H 18 Blood Pressure Pulse Oximetry Oxygen Delivery Oxygen Flow Rate 03/01/25 20:00 03/01/25 20:00 03/01/25 20:00 Temperature 98.7 F Pulse Rate 69 62 62 Pulse Rate [Bilateral Radial Palpation] Pulse Rate [Monitor] Respiratory Rate 18 16 Blood Pressure 95/65 L Pulse Oximetry 100 95 Oxygen Delivery Nasal Cannula Oxygen Flow Rate 2 03/01/25 21:00 03/01/25 22:00 03/01/25 22:00 Temperature Pulse Rate 58 L 62 58 L Pulse Rate [Bilateral Radial Palpation] Pulse Rate [Monitor] Respiratory Rate 14 17 Blood Pressure 110/72 99/76 L Pulse Oximetry 95 96 Oxygen Delivery Oxygen Flow Rate 03/01/25 22:00 03/01/25 22:00 03/01/25 23:00 Temperature Pulse Rate 58 L 58 L 57 L Pulse Rate [Bilateral Radial Palpation] Pulse Rate [Monitor] Respiratory Rate 12 12 12 Blood Pressure 113/83 Pulse Oximetry 92 Oxygen Delivery Oxygen Flow Rate 03/02/25 00:00 03/02/25 00:00 03/02/25 00:00 Temperature Pulse Rate 69 54 L 54 L Pulse Rate [Bilateral Radial Palpation] Pulse Rate [Monitor] Respiratory Rate 18 12 Blood Pressure Pulse Oximetry 100 Oxygen Delivery Nasal Cannula Oxygen Flow Rate 2 03/02/25 00:00 03/02/25 01:00 03/02/25 02:00 Temperature 98 F Pulse Rate 54 L 51 L 49 L Pulse Rate [Bilateral Radial Palpation] Pulse Rate [Monitor] Respiratory Rate 12 12 11 L Blood Pressure 108/78 105/82 Pulse Oximetry 95 96 Oxygen Delivery Oxygen Flow Rate 03/02/25 02:00 03/02/25 02:00 03/02/25 03:00 Temperature Pulse Rate 46 L 49 L 49 L Pulse Rate [Bilateral Radial Palpation] Pulse Rate [Monitor] Respiratory Rate 12 12 Blood Pressure 103/77 119/80 Pulse Oximetry 91 96 Oxygen Delivery Oxygen Flow Rate 03/02/25 04:00 03/02/25 04:00 03/02/25 04:00 Temperature 97.8 F Pulse Rate 49 L 60 69 Pulse Rate [Bilateral Radial Palpation] Pulse Rate [Monitor] Respiratory Rate 13 16 18 Blood Pressure 102/71 Pulse Oximetry 95 100 Oxygen Delivery Nasal Cannula Oxygen Flow Rate 2 03/02/25 04:00 03/02/25 04:30 03/02/25 05:00 Temperature Pulse Rate 52 L 52 L 48 L Pulse Rate [Bilateral Radial Palpation] Pulse Rate [Monitor] Respiratory Rate 19 12 Blood Pressure 98/71 L Pulse Oximetry 95 Oxygen Delivery Oxygen Flow Rate 03/02/25 05:30 03/02/25 06:00 03/02/25 06:00 Temperature Pulse Rate 49 L 64 62 Pulse Rate [Bilateral Radial Palpation] Pulse Rate [Monitor] Respiratory Rate 12 22 H Blood Pressure 106/71 Pulse Oximetry 95 Oxygen Delivery Oxygen Flow Rate 03/02/25 07:00 03/02/25 08:00 03/02/25 08:00 Temperature Pulse Rate 61 Pulse Rate [Bilateral Radial Palpation] Pulse Rate [Monitor] 75 Respiratory Rate 17 Blood Pressure 107/78 Pulse Oximetry 95 Oxygen Delivery Room Air Oxygen Flow Rate 03/02/25 08:00 03/02/25 08:00 03/02/25 08:00 Temperature Pulse Rate 82 84 73 Pulse Rate [Bilateral Radial Palpation] Pulse Rate [Monitor] Respiratory Rate 19 16 Blood Pressure 106/76 Pulse Oximetry 94 Oxygen Delivery Oxygen Flow Rate 03/02/25 09:00 03/02/25 09:58 03/02/25 10:00 Temperature Pulse Rate 73 97 Pulse Rate [Bilateral Radial Palpation] Pulse Rate [Monitor] 70 Respiratory Rate 16 16 Blood Pressure 104/68 115/97 H Pulse Oximetry 95 95 Oxygen Delivery Oxygen Flow Rate 03/02/25 10:00 03/02/25 10:00 03/02/25 11:00 Temperature 97.8 F Pulse Rate 73 73 67 Pulse Rate [Bilateral Radial Palpation] Pulse Rate [Monitor] Respiratory Rate 16 19 Blood Pressure 100/82 Pulse Oximetry 95 Oxygen Delivery Oxygen Flow Rate 03/02/25 12:00 03/02/25 12:00 03/02/25 12:00 Temperature Pulse Rate 85 Pulse Rate [Bilateral Radial Palpation] 69 Pulse Rate [Monitor] Respiratory Rate 17 Blood Pressure Pulse Oximetry Oxygen Delivery Room Air Oxygen Flow Rate 03/02/25 12:00 Temperature Pulse Rate 85 Pulse Rate [Bilateral Radial Palpation] Pulse Rate [Monitor] Respiratory Rate 18 Blood Pressure 121/76 Pulse Oximetry Oxygen Delivery Oxygen Flow Rate Intake/Output Intake/Output: Intake & Output 02/27/25 02/28/25 03/01/25 03/02/25 23:59 23:59 23:59 23:59 Intake Total 1000 2629.0 2764.4 Output Total 800 Balance 1000 1829.0 2764.4 Meds/Results Medications: Active Medications Generic Name Dose Route Start Last Admin Trade Name Freq PRN Reason Stop Dose Admin Chlordiazepoxide HCl 50 mg 03/02/25 12:00 03/02/25 11:07 Chlordiazepoxide (*Crx) 25 Mg Capsule PO 50 mg Q6HR LAVONNE Administration Olanzapine 10 mg/ Sterile 0 mg 03/01/25 17:00 03/02/25 08:26 Water 2.1 ml IM 10 mg BID LAVONNE Administration Enoxaparin Sodium 40 mg 03/01/25 09:00 03/02/25 08:22 Enoxaparin 40 Mg/0.4 Ml Syringe SUB-Q 40 mg DAILY LAVONNE Administration Folic Acid 1 mg 03/01/25 09:00 03/02/25 08:31 Folic Acid 1 Mg/0.2 Ml Inj IV PUSH 1 mg QAM LAVONNE Administration Thiamine HCl 500 mg in 100 mls @ 200 mls/hr 03/01/25 05:00 03/02/25 12:59 IVPB 03/05/25 04:59 Infused Q8H LAVONNE Infusion Sodium Chloride 1,000 mls @ 100 mls/hr 03/01/25 09:00 03/02/25 13:22 Normal Saline Iv IV CONT 100 mls/hr .Q10H LAVONNE Administration Lorazepam 1 mg 03/01/25 08:15 03/02/25 13:14 Lorazepam Inj (*Crx) 2 Mg/Ml Vial IV PUSH 1 mg Q1-2H PRN Administration Anxiety Morphine Sulfate 4 mg 03/01/25 01:02 Morphine Sulfate (*Crx) 4 Mg/Ml Inj IV PUSH Q4H PRN Pain Rated 7-10 Multivitamins Therapeutic 1 tablet 03/01/25 09:00 03/02/25 08:21 Multivitamins Therapeutic Tab (*Bkc) PO 1 tablet QAM LAVONNE Administration Pantoprazole Sodium 40 mg 03/01/25 09:00 03/02/25 08:21 Pantoprazole Sodium Iv 40 Mg Vial IV PUSH 40 mg QAM LAVONNE Administration Labs Labs: Laboratory Results - last 24 hr 03/01/25 03/01/25 03/02/25 13:44 18:14 03:57 Sodium 140 Potassium 3.8 Chloride 108 H Carbon Dioxide 17 L Anion Gap 15 H BUN 9 Creatinine 0.64 L Estim Creat Clear Calc 131 Estimated GFR > 60 Glucose 68 POC Capillary Glucose 88 82 Calcium 9.1 Phosphorus 3.6 Magnesium 2.0 Total Bilirubin 5.6 H AST 225 H ALT 179 H Alkaline Phosphatase 174 H Total Protein 7.2 Albumin 3.8 Lipase 811 H 03/02/25 11:27 Sodium Potassium Chloride Carbon Dioxide Anion Gap BUN Creatinine Estim Creat Clear Calc Estimated GFR Glucose POC Capillary Glucose 71 Calcium Phosphorus Magnesium Total Bilirubin AST ALT Alkaline Phosphatase Total Protein Albumin Lipase
[2025-03-02] MEDS: DEXTROSE 5%/0.45% SOD CHL 1,000 ML 100 ML IV CONT (14:20)
[2025-03-02 14:45] LABS: Alanine Aminotransferase 176 U/L (6-50); Albumin Level 3.6 g/dL (3.5-5.1); Alkaline Phosphatase 195 U/L (38-126); Anion Gap 9 mmol/L (4-12); Aspartate Amino Transferase 222 U/L (17-59); Bilirubin,Total 5.4 mg/dL (0.2-1.3); Blood Urea Nitrogen 8 mg/dL (9-20); Calcium 8.9 mg/dL (8.4-10.2); Carbon Dioxide 25 mmol/L (22-30); Chloride 102 mmol/L (98-107); Estimated CRCL calculation 139 ml/min; Estimated Glomerular Filt Rate > 60; Glucose 103 mg/dL (65-110); Potassium 3.4 mmol/L (3.4-5.0); Sodium 136 mmol/L (137-145); Total Protein 7.0 g/dL (6.3-8.2)
--- NOTE | 2025-03-02 17:08 | PM.IMPN2 ---
Assessment and Plan Assessment and Plan (1) Acute hyperactive alcohol withdrawal delirium: Code(s): F10.931 - Alcohol use, unspecified with withdrawal delirium Status: Acute (2) Acute alcoholic hepatitis: Code(s): K70.10 - Alcoholic hepatitis without ascites Status: Acute (3) Pancreatitis: Qualifiers: Chronicity: chronic Pancreatitis type: alcohol induced Qualified Code(s): K86.0 - Alcohol-induced chronic pancreatitis Code(s): K85.90 - Acute pancreatitis without necrosis or infection, unspecified Status: Acute (4) Hypercalcemia: Code(s): E83.52 - Hypercalcemia Status: Acute (5) High serum protein level: Code(s): R77.9 - Abnormality of plasma protein, unspecified Status: Acute Plan 44-year-old male with a medical history of chronic alcohol abuse who presented back to the ER due to abdominal pain and worsening confusion. The patient had been admitted on the evening of the due to jaundice, pancreatitis and acute alcoholic hepatitis and altered mental status. He underwent MRCP to rule out biliary obstruction was no obstruction identified. He was admitted on 02/28/2025 however later he left against medical advise. He came back again with worsening confusion and abdominal pain. Family convinced him to go back to the hospital. He was having visual hallucinations of people standing in the corner and of individuals spying on him from the roof of the opposite building. He was also paranoid that he had a hole in his kidney that was draining down into his scrotum with no evidence of scrotal edema or lower extremity edema. Patient initially reported that his last alcoholic beverage was 15 days ago but we are unable to verify this. The patient was also evidently taking some [id number] cough suppressants to help him sleep after stopping his alcohol use which he associated with worsening of his symptoms. In the ER the patient became agitated and pulled out his IV. He he was paranoid and having delusions that people were out in the [place] talking about him. He stated that he heard is children out in the [place] talking about him and he was going to leave. 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 Labs in the ER demonstrated persistent elevation and transaminases and bilirubin but numbers were stable compared to labs on the morning of the . Hemoglobin was also stable. The patient states that his tremors have been getting worse at home and he admits he has been having trouble holding the urinal due to the degree of tremors. ER staff reported the patient's CIWA score was only 6. When the patient arrived to the intermediate unit his CIWA score was initially 8. 2-1/2 hours after admission, his CIWA score precipitously increased. The patient was seeing a police helicopter outside the window and hallucinating about a giant police dog in the room with him. Nursing staff reported that is CIWA score was 22. Patient was then loaded with phenobarbital and was transferred to ICU for further treatment. Acute metabolic/toxic encephalopathy auditory and visual hallucinations. Elevated CIWA score suggestive alcohol withdrawal. Treated with phenobarbital load now and switch to Precedex drip. Ammonia normal. CT head negative Chronic alcohol abuse thiamine Recent pancreatitis likely due to alcohol use MRCP was initially negative. Lipase trending down Elevated liver enzymes continue to monitor. MRCP with prominent diffuse hepatic steatosis DVT prophylaxis Lovenox Status full code Subjective Date/time seen: 03/02/25 17:08 Interval history: Patient remains confused. Patient on Precedex drip. Less agitated. Sitter at bedside Review of Systems Review of Systems: All systems reviewed & are unremarkable except as noted in HPI and below Exam Narrative: APPEARANCE: Ill-appearing, mildly confused not in acute distress HEAD: normocephalic, atraumatic. EYES: Scleral icterus NOSE: Normal no drainage RESPIRATORY: Airway patent, respirations nonlabored. Clear to auscultation bilaterally, no rales, rhonchi, wheezing. CARDIOVASCULAR: Regular rate and rhythm without murmurs rubs or gallops. ABDOMINAL: Soft, nontender, nondistended, normal bowel sounds MUSCULOSKELETAL: Moves all extremities. Strength/ROM intact, No edema, No calf tenderness. NEURO: Alert. Cranial nerves II through XII intact. SKIN: Jaundice PSYCHIATRIC: Confused Objective Data Vital Signs Vital Signs: Vital Signs - 24 hr 03/01/25 17:31 03/01/25 17:54 03/01/25 18:00 Temperature Pulse Rate 55 L 57 L Pulse Rate [Bilateral Radial Palpation] Pulse Rate [Monitor] Respiratory Rate 15 Blood Pressure 127/78 Pulse Oximetry Oxygen Delivery Oxygen Flow Rate 03/01/25 18:00 03/01/25 19:00 03/01/25 19:00 Temperature Pulse Rate 56 L 87 84 Pulse Rate [Bilateral Radial Palpation] Pulse Rate [Monitor] Respiratory Rate 15 21 H 22 H Blood Pressure 129/80 106/68 Pulse Oximetry 100 Oxygen Delivery Oxygen Flow Rate 03/01/25 19:30 03/01/25 20:00 03/01/25 20:00 Temperature Pulse Rate 88 69 69 Pulse Rate [Bilateral Radial Palpation] Pulse Rate [Monitor] Respiratory Rate 25 H 18 18 Blood Pressure Pulse Oximetry 100 Oxygen Delivery Nasal Cannula Oxygen Flow Rate 2 03/01/25 20:00 03/01/25 20:00 03/01/25 21:00 Temperature 98.7 F Pulse Rate 62 62 58 L Pulse Rate [Bilateral Radial Palpation] Pulse Rate [Monitor] Respiratory Rate 16 14 Blood Pressure 95/65 L 110/72 Pulse Oximetry 95 95 Oxygen Delivery Oxygen Flow Rate 03/01/25 22:00 03/01/25 22:00 03/01/25 22:00 Temperature Pulse Rate 62 58 L 58 L Pulse Rate [Bilateral Radial Palpation] Pulse Rate [Monitor] Respiratory Rate 17 12 Blood Pressure 99/76 L Pulse Oximetry 96 Oxygen Delivery Oxygen Flow Rate 03/01/25 22:00 03/01/25 23:00 03/02/25 00:00 Temperature Pulse Rate 58 L 57 L 69 Pulse Rate [Bilateral Radial Palpation] Pulse Rate [Monitor] Respiratory Rate 12 12 18 Blood Pressure 113/83 Pulse Oximetry 92 100 Oxygen Delivery Nasal Cannula Oxygen Flow Rate 2 03/02/25 00:00 03/02/25 00:00 03/02/25 00:00 Temperature 98 F Pulse Rate 54 L 54 L 54 L Pulse Rate [Bilateral Radial Palpation] Pulse Rate [Monitor] Respiratory Rate 12 12 Blood Pressure 108/78 Pulse Oximetry 95 Oxygen Delivery Oxygen Flow Rate 03/02/25 01:00 03/02/25 02:00 03/02/25 02:00 Temperature Pulse Rate 51 L 49 L 46 L Pulse Rate [Bilateral Radial Palpation] Pulse Rate [Monitor] Respiratory Rate 12 11 L 12 Blood Pressure 105/82 103/77 Pulse Oximetry 96 91 Oxygen Delivery Oxygen Flow Rate 03/02/25 02:00 03/02/25 03:00 03/02/25 04:00 Temperature Pulse Rate 49 L 49 L 49 L Pulse Rate [Bilateral Radial Palpation] Pulse Rate [Monitor] Respiratory Rate 12 13 Blood Pressure 119/80 Pulse Oximetry 96 Oxygen Delivery Oxygen Flow Rate 03/02/25 04:00 03/02/25 04:00 03/02/25 04:00 Temperature 97.8 F Pulse Rate 60 69 52 L Pulse Rate [Bilateral Radial Palpation] Pulse Rate [Monitor] Respiratory Rate 16 18 Blood Pressure 102/71 Pulse Oximetry 95 100 Oxygen Delivery Nasal Cannula Oxygen Flow Rate 2 03/02/25 04:30 03/02/25 05:00 03/02/25 05:30 Temperature Pulse Rate 52 L 48 L 49 L Pulse Rate [Bilateral Radial Palpation] Pulse Rate [Monitor] Respiratory Rate 19 12 12 Blood Pressure 98/71 L Pulse Oximetry 95 Oxygen Delivery Oxygen Flow Rate 03/02/25 06:00 03/02/25 06:00 03/02/25 07:00 Temperature Pulse Rate 64 62 61 Pulse Rate [Bilateral Radial Palpation] Pulse Rate [Monitor] Respiratory Rate 22 H 17 Blood Pressure 106/71 107/78 Pulse Oximetry 95 95 Oxygen Delivery Oxygen Flow Rate 03/02/25 08:00 03/02/25 08:00 03/02/25 08:00 Temperature Pulse Rate 82 Pulse Rate [Bilateral Radial Palpation] Pulse Rate [Monitor] 75 Respiratory Rate 19 Blood Pressure 106/76 Pulse Oximetry 94 Oxygen Delivery Room Air Oxygen Flow Rate 03/02/25 08:00 03/02/25 08:00 03/02/25 09:00 Temperature Pulse Rate 84 73 73 Pulse Rate [Bilateral Radial Palpation] Pulse Rate [Monitor] Respiratory Rate 16 16 Blood Pressure 104/68 Pulse Oximetry 95 Oxygen Delivery Oxygen Flow Rate 03/02/25 09:58 03/02/25 10:00 03/02/25 10:00 Temperature Pulse Rate 97 73 Pulse Rate [Bilateral Radial Palpation] Pulse Rate [Monitor] 70 Respiratory Rate 16 Blood Pressure 115/97 H Pulse Oximetry 95 Oxygen Delivery Oxygen Flow Rate 03/02/25 10:00 03/02/25 11:00 03/02/25 12:00 Temperature 97.8 F Pulse Rate 73 67 Pulse Rate [Bilateral Radial Palpation] 69 Pulse Rate [Monitor] Respiratory Rate 16 19 Blood Pressure 100/82 Pulse Oximetry 95 Oxygen Delivery Oxygen Flow Rate 03/02/25 12:00 03/02/25 12:00 03/02/25 12:00 Temperature Pulse Rate 85 85 Pulse Rate [Bilateral Radial Palpation] Pulse Rate [Monitor] Respiratory Rate 17 18 Blood Pressure 121/76 Pulse Oximetry Oxygen Delivery Room Air Oxygen Flow Rate 03/02/25 14:00 03/02/25 16:09 03/02/25 16:11 Temperature Pulse Rate 76 Pulse Rate [Bilateral Radial Palpation] Pulse Rate [Monitor] 60 Respiratory Rate Blood Pressure Pulse Oximetry Oxygen Delivery Room Air Oxygen Flow Rate 03/02/25 16:16 03/02/25 16:36 Temperature 97.6 F Pulse Rate 72 62 Pulse Rate [Bilateral Radial Palpation] Pulse Rate [Monitor] Respiratory Rate 18 Blood Pressure 138/82 Pulse Oximetry 97 Oxygen Delivery Oxygen Flow Rate Intake/Output Intake/Output: Intake & Output 02/27/25 02/28/25 03/01/25 03/02/25 23:59 23:59 23:59 23:59 Intake Total 1000 2629.0 2764.4 Output Total 800 Balance 1000 1829.0 2764.4 Meds/Results Medications: Active Medications Generic Name Dose Route Start Last Admin Trade Name Freq PRN Reason Stop Dose Admin Chlordiazepoxide HCl 50 mg 03/02/25 12:00 03/02/25 16:59 Chlordiazepoxide (*Crx) 25 Mg Capsule PO 50 mg Q6HR LAVONNE Administration Olanzapine 10 mg/ Sterile 0 mg 03/01/25 17:00 03/02/25 17:01 Water 2.1 ml IM 10 mg BID LAVONNE Administration Enoxaparin Sodium 40 mg 03/01/25 09:00 03/02/25 08:22 Enoxaparin 40 Mg/0.4 Ml Syringe SUB-Q 40 mg DAILY LAVONNE Administration Folic Acid 1 mg 03/01/25 09:00 03/02/25 08:31 Folic Acid 1 Mg/0.2 Ml Inj IV PUSH 1 mg QAM LAVONNE Administration Thiamine HCl 500 mg in 100 mls @ 200 mls/hr 03/01/25 05:00 03/02/25 12:59 IVPB 03/05/25 04:59 Infused Q8H LAVONNE Infusion Dextrose/Sodium Chloride 1,000 mls @ 100 mls/hr 03/02/25 13:35 03/02/25 14:20 Dextrose 5% Sodium Chloride 0.45% IV CONT 03/03/25 07:00 100 mls/hr .Q10H LAVONNE Administration Lorazepam 1 mg 03/01/25 08:15 03/02/25 13:14 Lorazepam Inj (*Crx) 2 Mg/Ml Vial IV PUSH 1 mg Q1-2H PRN Administration Anxiety Multivitamins Therapeutic 1 tablet 03/01/25 09:00 03/02/25 08:21 Multivitamins Therapeutic Tab (*Bkc) PO 1 tablet QAM [facility] Administration Pantoprazole Sodium 40 mg 03/01/25 09:00 03/02/25 08:21 Pantoprazole Sodium Iv 40 Mg Vial IV PUSH 40 mg QAM LAVONNE Administration Labs Labs: Laboratory Results - last 24 hr 03/01/25 03/02/25 03/02/25 18:14 03:57 11:27 Sodium 140 Potassium 3.8 Chloride 108 H Carbon Dioxide 17 L Anion Gap 15 H BUN 9 Creatinine 0.64 L Estim Creat Clear Calc 131 Estimated GFR > 60 Glucose 68 POC Capillary Glucose 82 71 Calcium 9.1 Phosphorus 3.6 Magnesium 2.0 Total Bilirubin 5.6 H AST 225 H ALT 179 H Alkaline Phosphatase 174 H Total Protein 7.2 Albumin 3.8 Lipase 811 H 03/02/25 14:18 Sodium 136 L Potassium 3.4 Chloride 102 Carbon Dioxide 25 Anion Gap 9 BUN 8 L Creatinine 0.60 L Estim Creat Clear Calc 139 Estimated GFR > 60 Glucose 103 POC Capillary Glucose Calcium 8.9 Phosphorus Magnesium Total Bilirubin 5.4 H AST 222 H ALT 176 H Alkaline Phosphatase 195 H Total Protein 7.0 Albumin 3.6 Lipase
[2025-03-03] VITALS (15 sets, daily range): BP systolic 98–134; BP diastolic 80–94; PULSE 63–104; RESP 14–20; TEMP 36.6–37.3; O2SAT 94–100
[2025-03-03] MEDS: DEXTROSE 5%/0.45% SOD CHL 1,000 ML 100 ML IV CONT (00:20)
[2025-03-03] MEDS: LORazepam INJ (*CRX) 2 MG/ML VIAL 1 MG IV PUSH ×3 (00:34→14:00)
[2025-03-03] MEDS: THIAMINE 500 MG/NS 100 ML 500 MG/100 ML BAG 200 MG IVPB ×3 (04:29→20:20)
[2025-03-03] MEDS: chlordiazePOXIDE (*CRX) 25 MG CAPSULE 50 MG PO ×4 (08:34→23:54)
[2025-03-03] MEDS: PANTOPRAZOLE SODIUM IV 40 MG VIAL IV PUSH (08:34)
[2025-03-03] MEDS: MULTIVITAMINS THERAPEUTIC TAB (*BKC) 1 TABLET PO (08:34)
[2025-03-03 08:36] LABS: Hematocrit 32.4 % (42.0-52.0); Hemoglobin 11.3 g/dL (14.0-18.0); Immature Granulocyte Percent A 2.0 % (0-0.5); Lymphocytes Absolute Auto 0.83 K/mm3 (0.9-3.2); Mean Corpuscular HGB Conc 34.9 g/dl (32-36); Mean Corpuscular Hemoglobin 34.6 pg (26-34); Mean Corpuscular Volume 99.1 fl (80-100); Nucleated Red Blood Cells Absolute Auto 0.000 K/mm3 (0.0-0.012); Nucleated Red Blood Cells Perc 0.0 % (0.0-0.2); Platelet Count Result 323 k/mm3 (150-375); Red Blood Count 3.27 M/mm3 (4.6-6.20); White Blood Count 4.0 K/mm3 (4.5-10.0)
[2025-03-03] MEDS: FOLIC ACID 1 MG/0.2 ML INJ IV PUSH (08:47)
[2025-03-03] MEDS: ENOXAPARIN 40 MG/0.4 ML SYRINGE SUB-Q (08:48)
[2025-03-03 09:11] LABS: Alanine Aminotransferase 164 U/L (6-50); Albumin Level 3.5 g/dL (3.5-5.1); Alkaline Phosphatase 199 U/L (38-126); Anion Gap 5 mmol/L (4-12); Aspartate Amino Transferase 168 U/L (17-59); Bilirubin,Total 4.3 mg/dL (0.2-1.3); Blood Urea Nitrogen 2 mg/dL (9-20); Calcium 8.9 mg/dL (8.4-10.2); Carbon Dioxide 29 mmol/L (22-30); Chloride 103 mmol/L (98-107); Estimated CRCL calculation 123 ml/min; Estimated Glomerular Filt Rate > 60; Glucose 104 mg/dL (65-110); Lipase 1034 U/L (23-300); Magnesium 1.7 mg/dL (1.6-2.3); Potassium 3.0 mmol/L (3.4-5.0); Sodium 137 mmol/L (137-145); Total Protein 6.9 g/dL (6.3-8.2)
--- NOTE | 2025-03-03 10:47 | WPDINTPN2 ---
Assessment and Plan Assessment and Plan (1) Acute alcoholic hepatitis: Code(s): K70.10 - Alcoholic hepatitis without ascites Status: Acute (2) Acute hyperactive alcohol withdrawal delirium: Code(s): F10.931 - Alcohol use, unspecified with withdrawal delirium Status: Acute (3) Hypokalemia: Code(s): E87.6 - Hypokalemia Status: Acute Plan 1. Neurologically: Alcohol withdrawal. Continue with final folic acid as well as Librium, Ativan and Seroquel. 2. Cardiovascular no acute cardiac dysrhythmic events 3. Respiratory: Room air no respiratory symptoms. Normal oxygen saturation 4. GI: No evidence of abdominal pain. He is on a regular diet. No evidence of clinical pancreatitis. Not requiring any pain medications. LFTs remain elevated but slowly improving, his lipase went up a little today. 5. and Renal: Potassium is low and he will receive supplementation. Stop IV fluids. 6. Endocrine the sugars are mildly elevated. 7. Hematologically: Hemoglobin and platelet count about the same. White count is 4. 8. DVT: Prophylaxis on Lovenox 9. Id: Currently on antibiotics Time Spent With Patient Time with patient: 25 - 35 minutes Subjective Date/time seen: 03/03/25 10:47 Interval history: Patient still belligerent at night. Requiring around the clock Librium with p.r.n. Ativan. He also got Zyprexa yesterday been changed to Seroquel today. Exam Narrative: Patient is asleep not interacting much this morning Const: General: comfortable Eyes: General: appearance normal, both eyes and all related structures Neck: Neck: no JVD Resp: Effort & Inspection: normal respiratory effort Cardio: Rate: regular rate GI: GI Palp: Yes Soft to palpation Skin: Other: Icterus Extrem: General: normal to inspection Psych: Other: Patient is asleep not cooperative Objective Data Vital Signs Vital Signs: Vital Signs - 24 hr 03/02/25 11:00 03/02/25 12:00 03/02/25 12:00 Temperature 97.8 F Pulse Rate 67 85 Pulse Rate [Bilateral Radial Palpation] 69 Pulse Rate [Monitor] Respiratory Rate 19 17 Blood Pressure 100/82 Pulse Oximetry 95 Oxygen Delivery 03/02/25 12:00 03/02/25 12:00 03/02/25 14:00 Temperature Pulse Rate 85 76 Pulse Rate [Bilateral Radial Palpation] Pulse Rate [Monitor] Respiratory Rate 18 Blood Pressure 121/76 Pulse Oximetry Oxygen Delivery Room Air 03/02/25 16:09 03/02/25 16:11 03/02/25 16:16 Temperature 97.6 F Pulse Rate 72 Pulse Rate [Bilateral Radial Palpation] Pulse Rate [Monitor] 60 Respiratory Rate 18 Blood Pressure 138/82 Pulse Oximetry 97 Oxygen Delivery Room Air 03/02/25 16:36 03/02/25 18:33 03/02/25 18:48 Temperature Pulse Rate 62 68 Pulse Rate [Bilateral Radial Palpation] Pulse Rate [Monitor] 67 Respiratory Rate Blood Pressure Pulse Oximetry Oxygen Delivery 03/02/25 20:00 03/02/25 20:00 03/02/25 20:00 Temperature Pulse Rate 68 72 Pulse Rate [Bilateral Radial Palpation] 90 Pulse Rate [Monitor] Respiratory Rate 18 Blood Pressure Pulse Oximetry 97 Oxygen Delivery Room Air 03/02/25 20:00 03/02/25 22:00 03/02/25 23:00 Temperature 97.9 F Pulse Rate 78 71 72 Pulse Rate [Bilateral Radial Palpation] Pulse Rate [Monitor] Respiratory Rate 20 19 Blood Pressure 144/102 H Pulse Oximetry 98 96 Oxygen Delivery 03/03/25 00:00 03/03/25 00:00 03/03/25 00:00 Temperature Pulse Rate 72 72 Pulse Rate [Bilateral Radial Palpation] 90 Pulse Rate [Monitor] Respiratory Rate 20 Blood Pressure Pulse Oximetry 96 Oxygen Delivery Room Air 03/03/25 02:00 03/03/25 03:44 03/03/25 03:46 Temperature Pulse Rate 90 90 Pulse Rate [Bilateral Radial Palpation] 73 Pulse Rate [Monitor] Respiratory Rate 20 Blood Pressure Pulse Oximetry 96 Oxygen Delivery Room Air 03/03/25 03:48 03/03/25 04:00 03/03/25 06:00 Temperature Pulse Rate 72 75 64 Pulse Rate [Bilateral Radial Palpation] Pulse Rate [Monitor] Respiratory Rate 14 Blood Pressure 134/94 H Pulse Oximetry 96 Oxygen Delivery 03/03/25 08:00 03/03/25 08:00 Temperature 98.2 F Pulse Rate 82 Pulse Rate [Bilateral Radial Palpation] Pulse Rate [Monitor] 86 Respiratory Rate 16 Blood Pressure 98/80 L Pulse Oximetry 97 Oxygen Delivery Intake/Output Intake/Output: Intake & Output 02/28/25 03/01/25 03/02/2525 23:59 23:59 23:59 23:59 Intake Total 1000 2629.0 3104.4 1150 Output Total 800 2300 850 Balance 1000 1829.0 804.4 300 Meds/Results Medications: Active Medications Generic Name Dose Route Start Last Admin Trade Name Freq PRN Reason Stop Dose Admin Chlordiazepoxide HCl 50 mg 03/02/25 12:00 03/03/25 08:34 Chlordiazepoxide (*Crx) 25 Mg Capsule PO 50 mg Q6HR LAVONNE Administration Enoxaparin Sodium 40 mg 03/01/25 09:00 03/03/25 08:48 Enoxaparin 40 Mg/0.4 Ml Syringe SUB-Q 40 mg DAILY LAVONNE Administration Folic Acid 1 mg 03/01/25 09:00 03/03/25 08:47 Folic Acid 1 Mg/0.2 Ml Inj IV PUSH 1 mg QAM LAVONNE Administration Thiamine HCl 500 mg in 100 mls @ 200 mls/hr 03/01/25 05:00 03/03/25 04:29 IVPB 03/05/25 04:59 200 mls/hr Q8H LAVONNE Administration Lorazepam 1 mg 03/01/25 08:15 03/03/25 02:15 Lorazepam Inj (*Crx) 2 Mg/Ml Vial IV PUSH 1 mg Q1-2H PRN Administration Anxiety Multivitamins Therapeutic 1 tablet 03/01/25 09:00 03/03/25 08:34 Multivitamins Therapeutic Tab (*Bkc) PO 1 tablet QAM LAVONNE Administration Quetiapine Fumarate 50 mg 03/03/25 11:00 Quetiapine Fumarate 25 Mg Tablet PO Q12HR LAVONNE Labs Labs: Laboratory Results - last 24 hr 03/02/25 03/02/25 03/02/25 11:27 14:18 16:57 WBC RBC Hgb Hct MCV MCH MCHC RDW Plt Count MPV Immature Gran % (Auto) Neut % (Auto) Lymph % (Auto) [place] % (Auto) Eos % (Auto) Baso % (Auto) Lymph # (Auto) [place] # (Auto) Eos # (Auto) Baso # (Auto) Abs Immat Gran (auto) Absolute Neuts (auto) Absolute Nucleated RBC Nucleated RBC % % Immature Plt Fraction Sodium 136 L Potassium 3.4 Chloride 102 Carbon Dioxide 25 Anion Gap 9 BUN 8 L Creatinine 0.60 L Estim Creat Clear Calc 139 Estimated GFR > 60 Glucose 103 POC Capillary Glucose 71 101 Calcium 8.9 Magnesium Total Bilirubin 5.4 H AST 222 H ALT 176 H Alkaline Phosphatase 195 H Total Protein 7.0 Albumin 3.6 Lipase 03/03/25 03/03/25 03/03/25 03:20 04:22 08:30 WBC Cancelled 4.0 L RBC Cancelled 3.27 L Hgb Cancelled 11.3 L Hct Cancelled 32.4 L MCV Cancelled 99.1 MCH Cancelled 34.6 H MCHC Cancelled 34.9 RDW Cancelled 15.9 H Plt Count Cancelled 323 D MPV Cancelled 10.2 Immature Gran % (Auto) Cancelled 2.0 H Neut % (Auto) Cancelled 51.5 Lymph % (Auto) Cancelled 20.5 [place] % (Auto) Cancelled 18.8 H Eos % (Auto) Cancelled 5.0 H Baso % (Auto) Cancelled 2.2 H Lymph # (Auto) Cancelled 0.83 L [place] # (Auto) Cancelled 0.8 H Eos # (Auto) Cancelled 0.2 Baso # (Auto) Cancelled 0.1 Abs Immat Gran (auto) Cancelled 0.08 H Absolute Neuts (auto) Cancelled 2.1 Absolute Nucleated RBC Cancelled 0.000 Nucleated RBC % Cancelled 0.0 % Immature Plt Fraction Cancelled Sodium Cancelled 137 Potassium Cancelled 3.0 L Chloride Cancelled 103 Carbon Dioxide Cancelled 29 Anion Gap Cancelled 5 BUN Cancelled 2 L D Creatinine Cancelled 0.69 L Estim Creat Clear Calc Cancelled 123 Estimated GFR Cancelled > 60 Glucose Cancelled 104 POC Capillary Glucose 123 H Calcium Cancelled 8.9 Magnesium Cancelled 1.7 Total Bilirubin Cancelled 4.3 H AST Cancelled 168 H ALT Cancelled 164 H Alkaline Phosphatase Cancelled 199 H Total Protein Cancelled 6.9 Albumin Cancelled 3.5 Lipase Cancelled 1034 H 03/03/25 08:36 WBC RBC Hgb Hct MCV MCH MCHC RDW Plt Count MPV Immature Gran % (Auto) Neut % (Auto) Lymph % (Auto) [place] % (Auto) Eos % (Auto) Baso % (Auto) Lymph # (Auto) [place] # (Auto) Eos # (Auto) Baso # (Auto) Abs Immat Gran (auto) Absolute Neuts (auto) Absolute Nucleated RBC Nucleated RBC % % Immature Plt Fraction Sodium Potassium Chloride Carbon Dioxide Anion Gap BUN Creatinine Estim Creat Clear Calc Estimated GFR Glucose POC Capillary Glucose 112 H Calcium Magnesium Total Bilirubin AST ALT Alkaline Phosphatase Total Protein Albumin Lipase
[2025-03-03] MEDS: POTASSIUM CHLORIDE 20 MEQ ER TABLET 40 MEQ PO (11:27)
--- NOTE | 2025-03-03 16:27 | P.PNIM_ITS ---
Assessment and Plan Assessment and Plan (1) Acute hyperactive alcohol withdrawal delirium: Code(s): F10.931 - Alcohol use, unspecified with withdrawal delirium Status: Acute (2) Acute alcoholic hepatitis: Code(s): K70.10 - Alcoholic hepatitis without ascites Status: Acute (3) Pancreatitis: Qualifiers: Chronicity: chronic Pancreatitis type: alcohol induced Qualified Code(s): K86.0 - Alcohol-induced chronic pancreatitis Code(s): K85.90 - Acute pancreatitis without necrosis or infection, unspecified Status: Acute (4) Hypercalcemia: Code(s): E83.52 - Hypercalcemia Status: Acute (5) High serum protein level: Code(s): R77.9 - Abnormality of plasma protein, unspecified Status: Acute Plan 44-year-old male with a medical history of chronic alcohol abuse who presented back to the ER due to abdominal pain and worsening confusion. The patient had been admitted on the evening of the due to jaundice, pancreatitis and acute alcoholic hepatitis and altered mental status. He underwent MRCP to rule out biliary obstruction was no obstruction identified. He was admitted on 02/28/2025 however later he left against medical advise. He came back again with worsening confusion and abdominal pain. Family convinced him to go back to the hospital. He was having visual hallucinations of people standing in the corner and of individuals spying on him from the roof of the opposite building. He was also paranoid that he had a hole in his kidney that was draining down into his scrotum with no evidence of scrotal edema or lower extremity edema. Patient initially reported that his last alcoholic beverage was 15 days ago but we are unable to verify this. The patient was also evidently taking some [id number] cough suppressants to help him sleep after stopping his alcohol use which he associated with worsening of his symptoms. In the ER the patient became agitated and pulled out his IV. He he was paranoid and having delusions that people were out in the [place]hm[place] talking about him. He stated that he heard is children out in the [place] talking about him and he was going to leave. 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 Labs in the ER demonstrated persistent elevation and transaminases and bilirubin but numbers were stable compared to labs on the morning of the . Hemoglobin was also stable. The patient states that his tremors have been getting worse at home and he admits he has been having trouble holding the urinal due to the degree of tremors. ER staff reported the patient's CIWA score was only 6. When the patient arrived to the intermediate unit his CIWA score was initially 8. 2- 1/2 hours after admission, his CIWA score precipitously increased. The patient was seeing a police helicopter outside the window and hallucinating about a giant police dog in the room with him. Nursing staff reported that is CIWA score was 22. Patient was then loaded with phenobarbital and was transferred to ICU for further treatment. Acute metabolic/toxic encephalopathy auditory and visual hallucinations. Elevated CIWA score suggestive alcohol withdrawal. Treated with phenobarbital load now and switch to Precedex drip. Ammonia normal. CT head negative. Now transitioned to Librium requiring Ativan and Seroquel Chronic alcohol abuse thiamine Recent pancreatitis likely due to alcohol use MRCP was initially negative. Lipase trending down Elevated liver enzymes continue to monitor. MRCP with prominent diffuse hepatic steatosis DVT prophylaxis Lovenox Status full code Subjective Date/time seen: 03/03/25 16:27 Interval history: Patient remains confused. Patient off Precedex drip. On Librium oral. Still has on and off hallucination Review of Systems Review of Systems: All systems reviewed & are unremarkable except as noted in HPI and below Exam Narrative: APPEARANCE: Ill-appearing, mildly confused not in acute distress HEAD: normocephalic, atraumatic. EYES: Scleral icterus NOSE: Normal no drainage RESPIRATORY: Airway patent, respirations nonlabored. Clear to auscultation bilaterally, no rales, rhonchi, wheezing. CARDIOVASCULAR: Regular rate and rhythm without murmurs rubs or gallops. ABDOMINAL: Soft, nontender, nondistended, normal bowel sounds MUSCULOSKELETAL: Moves all extremities. Strength/ROM intact, No edema, No calf tenderness. NEURO: Asleep currently, Cranial nerves II through XII intact. SKIN: Jaundice PSYCHIATRIC: Confused Objective Data Vital Signs Vital Signs: Vital Signs - 24 hr 03/02/25 16:36 03/02/25 18:33 03/02/25 18:48 Temperature Pulse Rate 62 68 Pulse Rate [Bilateral Radial Palpation] Pulse Rate [Monitor] 67 Respiratory Rate Blood Pressure Pulse Oximetry Oxygen Delivery 03/02/25 20:00 03/02/25 20:00 03/02/25 20:00 Temperature Pulse Rate 68 72 Pulse Rate [Bilateral Radial Palpation] 90 Pulse Rate [Monitor] Respiratory Rate 18 Blood Pressure Pulse Oximetry 97 Oxygen Delivery Room Air 03/02/25 20:00 03/02/25 22:00 03/02/25 23:00 Temperature 97.9 F Pulse Rate 78 71 72 Pulse Rate [Bilateral Radial Palpation] Pulse Rate [Monitor] Respiratory Rate 20 19 Blood Pressure 144/102 H Pulse Oximetry 98 96 Oxygen Delivery 03/03/25 00:00 03/03/25 00:00 03/03/25 00:00 Temperature Pulse Rate 72 72 Pulse Rate [Bilateral Radial Palpation] 90 Pulse Rate [Monitor] Respiratory Rate 20 Blood Pressure Pulse Oximetry 96 Oxygen Delivery Room Air 03/03/25 02:00 03/03/25 03:44 03/03/25 03:46 Temperature Pulse Rate 90 90 Pulse Rate [Bilateral Radial Palpation] 73 Pulse Rate [Monitor] Respiratory Rate 20 Blood Pressure Pulse Oximetry 96 Oxygen Delivery Room Air 03/03/25 03:48 03/03/25 04:00 03/03/25 06:00 Temperature Pulse Rate 72 75 64 Pulse Rate [Bilateral Radial Palpation] Pulse Rate [Monitor] Respiratory Rate 14 Blood Pressure 134/94 H Pulse Oximetry 96 Oxygen Delivery 03/03/25 08:00 03/03/25 08:00 03/03/25 08:00 Temperature 98.2 F Pulse Rate 82 64 Pulse Rate [Bilateral Radial Palpation] Pulse Rate [Monitor] 86 Respiratory Rate 16 Blood Pressure 98/80 L Pulse Oximetry 97 Oxygen Delivery 03/03/25 10:00 03/03/25 12:00 03/03/25 12:00 Temperature 99.2 F Pulse Rate 68 88 Pulse Rate [Bilateral Radial Palpation] Pulse Rate [Monitor] 88 Respiratory Rate 18 Blood Pressure 114/87 Pulse Oximetry 100 Oxygen Delivery 03/03/25 12:00 03/03/25 14:00 Temperature Pulse Rate 77 104 H Pulse Rate [Bilateral Radial Palpation] Pulse Rate [Monitor] Respiratory Rate Blood Pressure Pulse Oximetry Oxygen Delivery Intake/Output Intake/Output: Intake & Output 02/28/25 03/01/25 03/02/25 03/03/25 23:59 23:59 23:59 23:59 Intake Total 1000 2629.0 3104.4 1916.7 Output Total 800 2300 850 Balance 1000 1829.0 804.4 1066.7 Meds/Results Medications: Active Medications Generic Name Dose Route Start Last Admin Trade Name Freq PRN Reason Stop Dose Admin Chlordiazepoxide HCl 50 mg 03/02/25 12:00 03/03/25 11:27 Chlordiazepoxide (*Crx) 25 Mg Capsule PO 50 mg Q6HR LAVONNE Administration Enoxaparin Sodium 40 mg 03/01/25 09:00 03/03/25 08:48 Enoxaparin 40 Mg/0.4 Ml Syringe SUB-Q 40 mg DAILY LAVONNE Administration Folic Acid 1 mg 03/01/25 09:00 03/03/25 08:47 Folic Acid 1 Mg/0.2 Ml Inj IV PUSH 1 mg QAM LAVONNE Administration Thiamine HCl 500 mg in 100 mls @ 200 mls/hr 03/01/25 05:00 03/03/25 13:46 IVPB 03/05/25 04:59 200 mls/hr Q8H LAVONNE Administration Lorazepam 1 mg 03/01/25 08:15 03/03/25 14:00 Lorazepam Inj (*Crx) 2 Mg/Ml Vial IV PUSH 1 mg Q1-2H PRN Administration Anxiety Multivitamins Therapeutic 1 tablet 03/01/25 09:00 03/03/25 08:34 Multivitamins Therapeutic Tab (*Bkc) PO 1 tablet QAM LAVONNE Administration Quetiapine Fumarate 50 mg 03/03/25 11:00 03/03/25 11:27 Quetiapine Fumarate 25 Mg Tablet PO 50 mg Q12HR LAVONNE Administration Labs Labs: Laboratory Results - last 24 hr 03/02/25 03/03/25 03/03/25 16:57 03:20 04:22 WBC Cancelled RBC Cancelled Hgb Cancelled Hct Cancelled MCV Cancelled MCH Cancelled MCHC Cancelled RDW Cancelled Plt Count Cancelled MPV Cancelled Immature Gran % (Auto) Cancelled Neut % (Auto) Cancelled Lymph % (Auto) Cancelled [place] % (Auto) Cancelled Eos % (Auto) Cancelled Baso % (Auto) Cancelled Lymph # (Auto) Cancelled [place] # (Auto) Cancelled Eos # (Auto) Cancelled Baso # (Auto) Cancelled Abs Immat Gran (auto) Cancelled Absolute Neuts (auto) Cancelled Absolute Nucleated RBC Cancelled Nucleated RBC % Cancelled % Immature Plt Fraction Cancelled Sodium Cancelled Potassium Cancelled Chloride Cancelled Carbon Dioxide Cancelled Anion Gap Cancelled BUN Cancelled Creatinine Cancelled Estim Creat Clear Calc Cancelled Estimated GFR Cancelled Glucose Cancelled POC Capillary Glucose 101 123 H Calcium Cancelled Magnesium Cancelled Total Bilirubin Cancelled AST Cancelled ALT Cancelled Alkaline Phosphatase Cancelled Total Protein Cancelled Albumin Cancelled Lipase Cancelled 03/03/25 03/03/25 03/03/25 08:30 08:36 11:41 WBC 4.0 L RBC 3.27 L Hgb 11.3 L Hct 32.4 L MCV 99.1 MCH 34.6 H MCHC 34.9 RDW 15.9 H Plt Count 323 D MPV 10.2 Immature Gran % (Auto) 2.0 H Neut % (Auto) 51.5 Lymph % (Auto) 20.5 [place] % (Auto) 18.8 H Eos % (Auto) 5.0 H Baso % (Auto) 2.2 H Lymph # (Auto) 0.83 L [place] # (Auto) 0.8 H Eos # (Auto) 0.2 Baso # (Auto) 0.1 Abs Immat Gran (auto) 0.08 H Absolute Neuts (auto) 2.1 Absolute Nucleated RBC 0.000 Nucleated RBC % 0.0 % Immature Plt Fraction Sodium 137 Potassium 3.0 L Chloride 103 Carbon Dioxide 29 Anion Gap 5 BUN 2 L D Creatinine 0.69 L Estim Creat Clear Calc 123 Estimated GFR > 60 Glucose 104 POC Capillary Glucose 112 H 123 H Calcium 8.9 Magnesium 1.7 Total Bilirubin 4.3 H AST 168 H ALT 164 H Alkaline Phosphatase 199 H Total Protein 6.9 Albumin 3.5 Lipase 1034 H
[2025-03-04] VITALS (13 sets, daily range): BP systolic 99–121; BP diastolic 70–87; PULSE 62–101; RESP 12–20; TEMP 36.4–36.9; O2SAT 94–98
[2025-03-04] MEDS: chlordiazePOXIDE (*CRX) 25 MG CAPSULE 50 MG PO ×3 (05:17→18:16)
[2025-03-04] MEDS: THIAMINE 500 MG/NS 100 ML 500 MG/100 ML BAG 200 MG IVPB ×3 (05:17→21:02)
[2025-03-04] MEDS: MULTIVITAMINS THERAPEUTIC TAB (*BKC) 1 TABLET PO (08:07)
[2025-03-04] MEDS: ENOXAPARIN 40 MG/0.4 ML SYRINGE SUB-Q (08:07)
[2025-03-04] MEDS: FOLIC ACID 1 MG/0.2 ML INJ IV PUSH (08:08)
--- NOTE | 2025-03-04 08:52 | WPDINTPN2 ---
Assessment and Plan Assessment and Plan (1) Hypokalemia: Code(s): E87.6 - Hypokalemia Status: Acute (2) Acute alcoholic hepatitis: Code(s): K70.10 - Alcoholic hepatitis without ascites Status: Acute (3) Acute hyperactive alcohol withdrawal delirium: Code(s): F10.931 - Alcohol use, unspecified with withdrawal delirium Status: Acute (4) Chronic alcohol abuse: Code(s): F10.10 - Alcohol abuse, uncomplicated Status: Acute (5) Metabolic encephalopathy: Code(s): G93.41 - Metabolic encephalopathy Status: Acute Plan 1. Neurologically: Awake and interactive today, not much tremors. I feel that the most severe part of his alcohol withdrawal is over. Continue with Librium, increase Seroquel and p.r.n. Ativan. 2. Cardiovascular: Blood pressure and heart rate are stable. 3. Respiratory: Room air no distress. 4. GI: Tolerating p.o. intake. Waiting for results of the labs today regarding LFTs. No abdominal pain, no clinical pancreatitis 5. and Renal: As of yesterday there were no significant issues on the chemistry and he is urinating spontaneously. We did have to replace potassium. 6. Endocrine: No history of diabetes or thyroid disease. Glucose is mildly elevated 7. DVT prophylaxis: Lovenox 8. Id currently on no antibiotics, no evidence of infection 9. Hematologically: As of yesterday there were no significant issues on his CBC except for mild anemia. Subjective Date/time seen: 03/04/25 08:52 Interval history: The patient is less agitated today. She is awake and interactive still somewhat confused. Oriented times place and time as well as situation Exam Narrative: Awake and interactive Const: General: comfortable HENMT: Mouth: Yes moist mucous membranes Eyes: General: appearance normal, both eyes and all related structures Neck: Neck: no JVD Resp: Effort & Inspection: normal respiratory effort Cardio: Rate: regular rate GI: GI Palp: Yes Soft to palpation Skin: Other: Icterus Neuro: Speech: normal speech Extrem: General: normal to inspection Psych: Affect: Anxious affect present Objective Data Vital Signs Vital Signs: Vital Signs - 24 hr 03/03/25 10:00 03/03/25 12:00 03/03/25 12:00 Temperature 99.2 F Pulse Rate 68 88 Pulse Rate [Bilateral Radial Palpation] Pulse Rate [Monitor] 88 Respiratory Rate 18 Blood Pressure 114/87 Pulse Oximetry 100 Oxygen Delivery 03/03/25 12:00 03/03/25 14:00 03/03/25 16:00 Temperature Pulse Rate 77 104 H 63 Pulse Rate [Bilateral Radial Palpation] Pulse Rate [Monitor] Respiratory Rate Blood Pressure Pulse Oximetry Oxygen Delivery 03/03/25 16:00 03/03/25 16:00 03/03/25 18:00 Temperature 99 F Pulse Rate 89 74 Pulse Rate [Bilateral Radial Palpation] Pulse Rate [Monitor] 86 Respiratory Rate 17 Blood Pressure 127/94 H Pulse Oximetry 99 Oxygen Delivery 03/03/25 20:00 03/03/25 20:00 03/03/25 20:00 Temperature Pulse Rate 76 76 Pulse Rate [Bilateral Radial Palpation] 76 Pulse Rate [Monitor] 76 Respiratory Rate 17 Blood Pressure 119/84 Pulse Oximetry 99 Oxygen Delivery Room Air 03/03/25 20:00 03/03/25 22:00 03/04/25 00:00 Temperature 97.8 F Pulse Rate 76 72 Pulse Rate [Bilateral Radial Palpation] 79 Pulse Rate [Monitor] 79 Respiratory Rate 20 Blood Pressure 119/84 99/76 L Pulse Oximetry 94 Oxygen Delivery 03/04/25 00:00 03/04/25 00:00 03/04/25 00:00 Temperature 97.8 F Pulse Rate 79 79 79 Pulse Rate [Bilateral Radial Palpation] Pulse Rate [Monitor] Respiratory Rate 20 18 Blood Pressure 99/76 L Pulse Oximetry 94 Oxygen Delivery Room Air 03/04/25 02:00 03/04/25 04:00 03/04/25 04:00 Temperature Pulse Rate 80 65 Pulse Rate [Bilateral Radial Palpation] Pulse Rate [Monitor] 65 Respiratory Rate 18 Blood Pressure 109/84 Pulse Oximetry 94 Oxygen Delivery Room Air 03/04/25 04:00 03/04/25 04:00 03/04/25 05:57 Temperature 97.9 F Pulse Rate 65 65 69 Pulse Rate [Bilateral Radial Palpation] Pulse Rate [Monitor] Respiratory Rate 16 Blood Pressure 109/84 Pulse Oximetry 95 Oxygen Delivery 03/04/25 08:00 03/04/25 08:00 Temperature 97.6 F Pulse Rate 86 Pulse Rate [Bilateral Radial Palpation] Pulse Rate [Monitor] 87 Respiratory Rate 19 Blood Pressure 115/87 Pulse Oximetry 98 Oxygen Delivery Intake/Output Intake/Output: Intake & Output 03/01/25 03/02/25 03/03/25 03/04/25 23:59 23:59 23:59 23:59 Intake Total 2629.0 3104.4 2766.7 300 Output Total 800 2300 2225 600 Balance 1829.0 804.4 541.7 -300 Meds/Results Medications: Active Medications Generic Name Dose Route Start Last Admin Trade Name Freq PRN Reason Stop Dose Admin Chlordiazepoxide HCl 50 mg 03/02/25 12:00 03/04/25 05:17 Chlordiazepoxide (*Crx) 25 Mg Capsule PO 50 mg Q6HR LAVONNE Administration Enoxaparin Sodium 40 mg 03/01/25 09:00 03/04/25 08:07 Enoxaparin 40 Mg/0.4 Ml Syringe SUB-Q 40 mg DAILY LAVONNE Administration Folic Acid 1 mg 03/01/25 09:00 03/04/25 08:08 Folic Acid 1 Mg/0.2 Ml Inj IV PUSH 1 mg QAM LAVONNE Administration Thiamine HCl 500 mg in 100 mls @ 200 mls/hr 03/01/25 05:00 03/04/25 05:50 IVPB 03/05/25 04:59 Infused Q8H LAVONNE Infusion Lorazepam 1 mg 03/01/25 08:15 03/03/25 14:00 Lorazepam Inj (*Crx) 2 Mg/Ml Vial IV PUSH 1 mg Q1-2H PRN Administration Anxiety Multivitamins Therapeutic 1 tablet 03/01/25 09:00 03/04/25 08:07 Multivitamins Therapeutic Tab (*Bkc) PO 1 tablet QAM LAVONNE Administration Quetiapine Fumarate 75 mg 03/04/25 09:00 03/04/25 08:06 Quetiapine Fumarate 25 Mg Tablet PO 75 mg Q12HR LAVONNE Administration Labs Labs: Laboratory Results - last 24 hr 03/03/25 03/03/25 03/03/25 08:30 08:36 11:41 Sodium 137 Potassium 3.0 L Chloride 103 Carbon Dioxide 29 Anion Gap 5 BUN 2 L D Creatinine 0.69 L Estim Creat Clear Calc 123 Estimated GFR > 60 Glucose 104 POC Capillary Glucose 112 H 123 H Calcium 8.9 Magnesium 1.7 Total Bilirubin 4.3 H AST 168 H ALT 164 H Alkaline Phosphatase 199 H Total Protein 6.9 Albumin 3.5 Lipase 1034 H 03/03/25 17:28 Sodium Potassium Chloride Carbon Dioxide Anion Gap BUN Creatinine Estim Creat Clear Calc Estimated GFR Glucose POC Capillary Glucose 110 H Calcium Magnesium Total Bilirubin AST ALT Alkaline Phosphatase Total Protein Albumin Lipase
[2025-03-04 09:14] LABS: Albumin Level 3.5 g/dL (3.5-5.1); Anion Gap 7 mmol/L (4-12); Blood Urea Nitrogen 3 mg/dL (9-20); Calcium 8.9 mg/dL (8.4-10.2); Carbon Dioxide 28 mmol/L (22-30); Chloride 103 mmol/L (98-107); Estimated CRCL calculation 123 ml/min; Estimated Glomerular Filt Rate > 60; Glucose 138 mg/dL (65-110); Potassium 3.2 mmol/L (3.4-5.0); Sodium 138 mmol/L (137-145)
[2025-03-04] MEDS: POTASSIUM CHLORIDE 20 MEQ ER TABLET 40 MEQ PO (10:20)
[2025-03-04] MEDS: NICOTINE (*PBKC) 21 MG PATCH 1 PATCH TRANSDERM (16:43)
[2025-03-05] VITALS (9 sets, daily range): BP systolic 102–126; BP diastolic 66–91; PULSE 60–80; RESP 13–18; TEMP 36.4–36.7; O2SAT 97–99
[2025-03-05] MEDS: chlordiazePOXIDE (*CRX) 25 MG CAPSULE 50 MG PO ×4 (00:18→21:20)
[2025-03-05 04:46] LABS: Hematocrit 31.6 % (42.0-52.0); Hemoglobin 10.6 g/dL (14.0-18.0); Immature Granulocyte Percent A 2.4 % (0-0.5); Lymphocytes Absolute Auto 1.01 K/mm3 (0.9-3.2); Mean Corpuscular HGB Conc 33.5 g/dl (32-36); Mean Corpuscular Hemoglobin 35.0 pg (26-34); Mean Corpuscular Volume 104.3 fl (80-100); Nucleated Red Blood Cells Absolute Auto 0.000 K/mm3 (0.0-0.012); Nucleated Red Blood Cells Perc 0.0 % (0.0-0.2); Platelet Count Result 355 k/mm3 (150-375); Red Blood Count 3.03 M/mm3 (4.6-6.20); White Blood Count 3.7 K/mm3 (4.5-10.0)
[2025-03-05 05:09] LABS: Alanine Aminotransferase 135 U/L (6-50); Albumin Level 3.3 g/dL (3.5-5.1); Alkaline Phosphatase 199 U/L (38-126); Anion Gap 4 mmol/L (4-12); Aspartate Amino Transferase 133 U/L (17-59); Bilirubin,Total 2.6 mg/dL (0.2-1.3); Blood Urea Nitrogen 5 mg/dL (9-20); Calcium 9.0 mg/dL (8.4-10.2); Carbon Dioxide 27 mmol/L (22-30); Chloride 108 mmol/L (98-107); Estimated CRCL calculation 105 ml/min; Estimated Glomerular Filt Rate > 60; Glucose 105 mg/dL (65-110); Potassium 3.4 mmol/L (3.4-5.0); Sodium 139 mmol/L (137-145); Total Protein 6.4 g/dL (6.3-8.2)
[2025-03-05] MEDS: ENOXAPARIN 40 MG/0.4 ML SYRINGE SUB-Q (08:28)
[2025-03-05] MEDS: MULTIVITAMINS THERAPEUTIC TAB (*BKC) 1 TABLET PO (08:30)
[2025-03-05] MEDS: FOLIC ACID 1 MG/0.2 ML INJ IV PUSH (08:30)
[2025-03-05] MEDS: NICOTINE (*PBKC) 21 MG PATCH 1 PATCH TRANSDERM (08:30)
--- NOTE | 2025-03-05 09:29 | WPDINTPN2 ---
Assessment and Plan Assessment and Plan (1) Hypokalemia: Code(s): E87.6 - Hypokalemia Status: Acute (2) Acute alcoholic hepatitis: Code(s): K70.10 - Alcoholic hepatitis without ascites Status: Acute (3) Acute hyperactive alcohol withdrawal delirium: Code(s): F10.931 - Alcohol use, unspecified with withdrawal delirium Status: Acute Plan 1. Neurologically: Patient is awake and following commands. Tremors are almost completely gone and he is not agitated. 2. Cardiovascular: Heart rate and blood pressure overall stable 3. Respiratory: On room air no symptoms 4. GI tolerating p.o. intake. LFTs continue to improve. Even though he has elevated lipase he has no evidence of clinical pancreatitis tolerating p.o. intake without any vomiting or abdominal pain. Continue with p.o. diet 5. and Renal: BUN creatinine electrolytes overall stable. He has minimal hypokalemia which will be treated. 6. Endocrine no history of thyroid or diabetes diseases. 7. DVT prophylaxis: Lovenox 8. Id currently on no antibiotics 9. Hematologically white blood cell count is minimally decreased and hemoglobin has decreased as well to 10.6 after receiving fluids for the last couple days. Will recheck labs tomorrow. 10. Disposition: Stable to move to medical floor. Subjective Date/time seen: 03/05/25 09:29 Interval history: Patient is awake and following commands today significantly less agitated Exam Narrative: Awake and following commands Const: General: comfortable HENMT: Face/Nose/Sinus: Normal nares present Eyes: General: appearance normal, both eyes and all related structures Neck: Neck: no JVD Resp: Effort & Inspection: normal respiratory effort Cardio: Rate: regular rate GI: GI Palp: Yes Soft to palpation Auscultation: normal bowel sounds Skin: General skin exam: normal color Neuro: Speech: normal speech Extrem: General: normal to inspection Psych: Affect: normal affect Objective Data Vital Signs Vital Signs: Vital Signs - 24 hr 03/04/25 10:00 03/04/25 11:30 03/04/25 12:00 Temperature 98.2 F Pulse Rate 64 85 101 H Pulse Rate [Monitor] Respiratory Rate 19 Blood Pressure 106/70 Pulse Oximetry 97 Oxygen Delivery 03/04/25 12:00 03/04/25 14:00 03/04/25 16:00 Temperature Pulse Rate 66 Pulse Rate [Monitor] 101 H 68 Respiratory Rate Blood Pressure Pulse Oximetry Oxygen Delivery 03/04/25 16:00 03/04/25 16:00 03/04/25 18:00 Temperature 98.5 F Pulse Rate 73 75 76 Pulse Rate [Monitor] Respiratory Rate 16 Blood Pressure 110/85 Pulse Oximetry 97 Oxygen Delivery 03/04/25 20:00 03/04/25 20:00 03/04/25 20:00 Temperature 98.1 F Pulse Rate 66 Pulse Rate [Monitor] 62 Respiratory Rate 12 Blood Pressure 121/80 Pulse Oximetry 96 Oxygen Delivery Room Air 03/04/25 20:00 03/04/25 22:00 03/05/25 00:00 Temperature Pulse Rate 62 67 Pulse Rate [Monitor] 69 Respiratory Rate Blood Pressure Pulse Oximetry Oxygen Delivery 03/05/25 00:00 03/05/25 00:00 03/05/25 00:00 Temperature 97.8 F Pulse Rate 64 69 Pulse Rate [Monitor] Respiratory Rate 13 Blood Pressure 102/73 Pulse Oximetry 99 Oxygen Delivery Room Air 03/05/25 02:00 03/05/25 04:00 03/05/25 04:00 Temperature 97.5 F L Pulse Rate 65 69 Pulse Rate [Monitor] 69 Respiratory Rate 14 Blood Pressure 109/66 Pulse Oximetry 97 Oxygen Delivery 03/05/25 04:00 03/05/25 04:00 03/05/25 06:00 Temperature Pulse Rate 68 61 Pulse Rate [Monitor] Respiratory Rate Blood Pressure Pulse Oximetry Oxygen Delivery Room Air 03/05/25 08:00 03/05/25 08:48 03/05/25 08:50 Temperature 97.5 F L Pulse Rate 68 Pulse Rate [Monitor] 60 Respiratory Rate 14 Blood Pressure 119/91 H Pulse Oximetry Oxygen Delivery Room Air Intake/Output Intake/Output: Intake & Output 03/02/25 03/03/25 03/04/25 03/05/25 23:59 23:59 23:59 23:59 Intake Total 3104.4 2766.7 1952 620 Output Total 2300 2225 2625 600 Balance 804.4 541.7 -673 20 Meds/Results Medications: Active Medications Generic Name Dose Route Start Last Admin Trade Name Freq PRN Reason Stop Dose Admin Chlordiazepoxide HCl 50 mg 03/02/25 12:00 03/05/25 06:19 Chlordiazepoxide (*Crx) 25 Mg Capsule PO 50 mg Q6HR LAVONNE Administration Enoxaparin Sodium 40 mg 03/01/25 09:00 03/05/25 08:28 Enoxaparin 40 Mg/0.4 Ml Syringe SUB-Q 40 mg DAILY LAVONNE Administration Folic Acid 1 mg 03/01/25 09:00 03/05/25 08:30 Folic Acid 1 Mg/0.2 Ml Inj IV PUSH 1 mg QAM LAVONNE Administration Lorazepam 1 mg 03/01/25 08:15 03/03/25 14:00 Lorazepam Inj (*Crx) 2 Mg/Ml Vial IV PUSH 1 mg Q1-2H PRN Administration Anxiety Multivitamins Therapeutic 1 tablet 03/01/25 09:00 03/05/25 08:30 Multivitamins Therapeutic Tab (*Bkc) PO 1 tablet QAM LAVONNE Administration Nicotine 1 patch 03/05/25 09:00 03/05/25 08:30 Nicotine (*Pbkc) 21 Mg Patch TRANSDERM 1 patch DAILY LAVONNE Administration Quetiapine Fumarate 75 mg 03/04/25 09:00 03/05/25 08:30 Quetiapine Fumarate 25 Mg Tablet PO 75 mg Q12HR LAVONNE Administration Labs Labs: Laboratory Results - last 24 hr 03/04/25 03/05/25 11:39 04:14 WBC 3.7 L RBC 3.03 L Hgb 10.6 L Hct 31.6 L MCV 104.3 H D MCH 35.0 H MCHC 33.5 RDW 16.5 H Plt Count 355 MPV 10.4 Immature Gran % (Auto) 2.4 H Neut % (Auto) 48.6 Lymph % (Auto) 27.1 [place] % (Auto) 14.7 H Eos % (Auto) 4.3 Baso % (Auto) 2.9 H Lymph # (Auto) 1.01 [place] # (Auto) 0.6 Eos # (Auto) 0.2 Baso # (Auto) 0.1 Abs Immat Gran (auto) 0.09 H Absolute Neuts (auto) 1.8 Absolute Nucleated RBC 0.000 Nucleated RBC % 0.0 Sodium 139 Potassium 3.4 Chloride 108 H Carbon Dioxide 27 Anion Gap 4 BUN 5 L Creatinine 0.82 Estim Creat Clear Calc 105 Estimated GFR > 60 Glucose 105 POC Capillary Glucose 113 H Calcium 9.0 Total Bilirubin 2.6 H AST 133 H ALT 135 H Alkaline Phosphatase 199 H Total Protein 6.4 Albumin 3.3 L
[2025-03-05] MEDS: POTASSIUM CHLORIDE 20 MEQ ER TABLET 40 MEQ PO (11:21)
[2025-03-06] VITALS: PULSE 62
[2025-03-06 06:00] VITALS: BP 109/76; PULSE 63; RESP 18; TEMP 36.7; O2SAT 97
[2025-03-06] MEDS: chlordiazePOXIDE (*CRX) 25 MG CAPSULE 50 MG PO ×2 (06:07→13:07)
[2025-03-06 06:59] LABS: Hematocrit 32.4 % (42.0-52.0); Hemoglobin 10.8 g/dL (14.0-18.0); Immature Granulocyte Percent A 2.4 % (0-0.5); Lymphocytes Absolute Auto 1.09 K/mm3 (0.9-3.2); Mean Corpuscular HGB Conc 33.3 g/dl (32-36); Mean Corpuscular Hemoglobin 34.6 pg (26-34); Mean Corpuscular Volume 103.8 fl (80-100); Nucleated Red Blood Cells Absolute Auto 0.000 K/mm3 (0.0-0.012); Nucleated Red Blood Cells Perc 0.0 % (0.0-0.2); Platelet Count Result 370 k/mm3 (150-375); Red Blood Count 3.12 M/mm3 (4.6-6.20); White Blood Count 4.5 K/mm3 (4.5-10.0)
[2025-03-06 07:11] LABS: Alanine Aminotransferase 131 U/L (6-50); Albumin Level 3.4 g/dL (3.5-5.1); Alkaline Phosphatase 194 U/L (38-126); Anion Gap 5 mmol/L (4-12); Aspartate Amino Transferase 131 U/L (17-59); Bilirubin,Total 2.3 mg/dL (0.2-1.3); Blood Urea Nitrogen 6 mg/dL (9-20); Calcium 9.3 mg/dL (8.4-10.2); Carbon Dioxide 27 mmol/L (22-30); Chloride 105 mmol/L (98-107); Estimated CRCL calculation 108 ml/min; Estimated Glomerular Filt Rate > 60; Glucose 104 mg/dL (65-110); Potassium 4.2 mmol/L (3.4-5.0); Sodium 137 mmol/L (137-145); Total Protein 6.6 g/dL (6.3-8.2)
[2025-03-06 08:00] VITALS: PULSE 60
[2025-03-06] MEDS: ENOXAPARIN 40 MG/0.4 ML SYRINGE SUB-Q (10:24)
[2025-03-06] MEDS: NICOTINE (*PBKC) 21 MG PATCH 1 PATCH TRANSDERM (10:24)
[2025-03-06] MEDS: THIAMINE HCL 100 MG TABLET PO (10:25)
[2025-03-06] MEDS: MULTIVITAMINS THERAPEUTIC TAB (*BKC) 1 TABLET PO (10:25)
[2025-03-06] MEDS: FOLIC ACID 1 MG TABLET PO (10:25)
[2025-03-06 14:00] VITALS: BP 117/78; PULSE 64; RESP 16; TEMP 36.5; O2SAT 99
--- NOTE | 2025-03-06 15:09 | P.DS_ITS ---
DS: Admitting Diagnosis Discharge Date 03/06/2025 Admitting Diagnosis Confusion DS: Discharge Diagnosis Discharge Diagnosis (1) Acute hyperactive alcohol withdrawal delirium: Code(s): F10.931 - Alcohol use, unspecified with withdrawal delirium Status: Acute (2) Acute alcoholic hepatitis: Code(s): K70.10 - Alcoholic hepatitis without ascites Status: Acute (3) Pancreatitis: Qualifiers: Chronicity: chronic Pancreatitis type: alcohol induced Qualified Code(s): K86.0 - Alcohol-induced chronic pancreatitis Code(s): K85.90 - Acute pancreatitis without necrosis or infection, unspecified Status: Acute (4) Hypercalcemia: Code(s): E83.52 - Hypercalcemia Status: Acute (5) High serum protein level: Code(s): R77.9 - Abnormality of plasma protein, unspecified Status: Acute DS: Summary Hospital Course Hospital Course: 44-year-old male with a medical history of chronic alcohol abuse who presented back to the ER due to abdominal pain and worsening confusion. The patient had been admitted on the evening of the due to jaundice, pancreatitis and acute alcoholic hepatitis and altered mental status. He underwent MRCP to rule out biliary obstruction was no obstruction identified. He was admitted on 02/28/2025 however later he left against medical advise. He came back again with worsening confusion and abdominal pain. Family convinced him to go back to the hospital. He was having visual hallucinations of people standing in the corner and of individuals spying on him from the roof of the opposite building. He was also paranoid that he had a hole in his kidney that was draining down into his scrotum with no evidence of scrotal edema or lower extremity edema. Patient initially reported that his last alcoholic beverage was 15 days ago but we are unable to verify this. The patient was also evidently taking some [id number] cough suppressants to help him sleep after stopping his alcohol use which he associated with worsening of his symptoms. In the ER the patient became agitated and pulled out his IV. He he was paranoid and having delusions that people were out in the [place] talking about him. He stated that he heard is children out in the [place] talking about him and he was going to leave. 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 Labs in the ER demonstrated persistent elevation and transaminases and bilirubin but numbers were stable compared to labs on the morning of the . Hemoglobin was also stable. The patient states that his tremors have been getting worse at home and he admits he has been having trouble holding the urinal due to the degree of tremors. ER staff reported the patient's CIWA score was only 6. When the patient arrived to the intermediate unit his CIWA score was initially 8. 2- 1/2 hours after admission, his CIWA score precipitously increased. The patient was seeing a police helicopter outside the window and hallucinating about a giant police dog in the room with him. Nursing staff reported that is CIWA score was 22. Patient was then loaded with phenobarbital and was transferred to ICU for further treatment. Acute metabolic/toxic encephalopathy auditory and visual hallucinations. Elevated CIWA score suggestive alcohol withdrawal. Treated with phenobarbital load now and switch to Precedex drip. Ammonia normal. CT head negative. He was then transitioned to Librium requiring Ativan and Seroquel. Patient is much more lucid now with resolution of all signs and symptoms of alcohol withdrawal. He remains on Librium which will be planned to be tapered off. He also remains on Seroquel has been added since admission. He suggested to follow up with PCP in 1 week. Also advised alcohol abstinence and alcohol rehab program Chronic alcohol abuse thiamine Recent pancreatitis likely due to alcohol use MRCP was initially negative. Lipase trending down Elevated liver enzymes continue to monitor. MRCP with prominent diffuse hepatic steatosis. These continued to improve throughout the hospital stay DVT prophylaxis Lovenox Status full code Time Spent with Patient Time attestation: Total time spent providing and/or coordinating discharge services: 45 minutes Exam Narrative: APPEARANCE: Well-appearing, alert and oriented x3 not in acute distress HEAD: normocephalic, atraumatic. EYES: Scleral icterus NOSE: Normal no drainage RESPIRATORY: Airway patent, respirations nonlabored. Clear to auscultation bilaterally, no rales, rhonchi, wheezing. CARDIOVASCULAR: Regular rate and rhythm without murmurs rubs or gallops. ABDOMINAL: Soft, nontender, nondistended, normal bowel sounds MUSCULOSKELETAL: Moves all extremities. Strength/ROM intact, No edema, No calf tenderness. NEURO: Alert and oriented x3, Cranial nerves II through XII intact, no focal deficit SKIN: No rash no lesions PSYCHIATRIC: Normal mood DS: Data Data Completed and Pending Labs on day of discharge: Labs from last 24 hours 03/06/25 06:38 WBC 4.5 RBC 3.12 L Hgb 10.8 L Hct 32.4 L MCV 103.8 H MCH 34.6 H MCHC 33.3 RDW 16.3 H Plt Count 370 MPV 10.5 H Immature Gran % (Auto) 2.4 H Neut % (Auto) 55.7 Lymph % (Auto) 24.1 [place] % (Auto) 11.0 H Eos % (Auto) 4.4 Baso % (Auto) 2.4 H Lymph # (Auto) 1.09 [place] # (Auto) 0.5 Eos # (Auto) 0.2 Baso # (Auto) 0.1 Abs Immat Gran (auto) 0.11 H Absolute Neuts (auto) 2.5 Absolute Nucleated RBC 0.000 Nucleated RBC % 0.0 Sodium 137 Potassium 4.2 Chloride 105 Carbon Dioxide 27 Anion Gap 5 BUN 6 L Creatinine 0.79 Estim Creat Clear Calc 108 Estimated GFR > 60 Glucose 104 Calcium 9.3 Total Bilirubin 2.3 H AST 131 H ALT 131 H Alkaline Phosphatase 194 H Total Protein 6.6 Albumin 3.4 L Discharge Plan Discharge Attending physician on discharge: Hudson Donald Consulting providers: Tab Saldaña Discharging Clinician: Hudson Donald Anticipated Discharge Date/Time: 03/06/25 15:14 Patient Disposition: Home Activity: as tolerated Diet: regular Patient Instructions: Antibiotic Form, Alcohol Withdrawal (GEN), Alcohol Dependence (GEN), Encephalopathy (GEN) Patient Language: Armenian Stand Alone Forms: General Discharge Information Follow-up/Referrals: Olegario,MD Fausto [Primary Care Provider, Unknown] - 1 Week Discharge Medications: New chlordiazepoxide HCl 25 mg capsule See Rx Instructions .ROUTE .COMPLEX Qty: 12 0RF Rx Instructions: take one tablet by mouth three times daily x 2 days then 1 tablet twice daily x 2 days then 1 tablet daily x 2 days then stop multivitamin with folic acid [Thera] 400 mcg Tablet 1 tablet PO QAM Qty: 30 0RF quetiapine [Seroquel] 50 mg tablet 75 mg PO BID Qty: 90 0RF folic acid 1 mg Tablet 1 mg PO DAILY Qty: 30 0RF thiamine HCl (vitamin B1) [Vitamin B-1] 100 mg Tablet 100 mg PO QAM Qty: 30 0RF No Action No Home Medications Other Ambulatory Orders: Complete Blood Count with Diff (Routine) Timeframe: 1 Week Location: Determined by Patient Ordered By: Hudson Donald Comprehensive Metabolic Panel (Routine) Timeframe: 1 Week Location: Determined by Patient Ordered By: Hudson Donald Date of admission: 03/02/25 07:18 [facility]: Kathrine Pinon Attending physician on admission: Kathrine Pinon Condition: Improved
== END 2025-03-06 16:10 | disposition home or self-care (01) | DRG 896 ==
LOC: ANHED 20:02 → ANHIMU 20:35 → ANHICU 03-01 02:43 → ANH3MEDSUR 03-06 05:31 → ANHICU 03-07 10:53
PROVIDERS: Internal Medicine Critical Care Medicine; Nurse Practitioner; Admitting Provider Internal Medicine; Emergency Provider Emergency Medicine; PCP Family Medicine; Visit Provider Internal Medicine
DX: F10.131 Alcohol abuse with withdrawal delirium (principal); G93.41 Metabolic encephalopathy; K86.0 Alcohol-induced chronic pancreatitis; R44.0 Auditory hallucinations; R44.1 Visual hallucinations; K70.10 Alcoholic hepatitis without ascites; E83.52 Hypercalcemia; R77.9 Abnormality of plasma protein, unspecified; E87.6 Hypokalemia
CPT/HCPCS: 36415; 80053; 80069; 82140; 82948; 83690; 83735; 84100; 85025; 85027; 85610; 85730; 96361; 96366; 96367; 96368; 96372; 96374; 96375; 96376; 99285; A9270; G0378; J1630; J1650; J2060; J2359; J2470; J2560; J3411; J3480; J7030; J7040